=== PATIENT | female | born 1940 | race Caucasian/White ===

== ENCOUNTER → 2016-12-04 | Outpatient (CLI) | payer MEDICARE, OTHER ==
[~2016-12-04] MED LIST: REGADENOSON 0.4 MG/5 ML SYRINGE IV ONE
--- NOTE | 2016-12-04 10:59 | EST ---
DATE OF SERVICE: 12/04/2016 AGE: 76Y SEX: F HT: 5' WT: 185 lbs. Protocol Monster: Other: Lexiscan Cardiolite Stage: Dur. of Exercise: *Heart Rate Blood Pressure *Rest: 77 Rest: 155/85 * *Max. Achieved: 86 Maximum BP: 155/85 85% PMHR: 122 100% PMHR: 144 *METS: INDICATIONS: Chest pain. MEDICATIONS: CLINICAL INFORMATION: Chest pain, palpitations, shortness of breath. Resting ECG shows sinus rhythm, rate of 77 beats per minute, NH interval 0.16, QRS 0.08, nonpathologic Q waves are noted in the inferior leads. Utilizing a standard Lexiscan protocol, Lexiscan was given IV push followed by serial EKGs without any chest pain or pressure or ST segment deviations or cardiac arrhythmias throughout the study. IMPRESSION: 1. Baseline rhythm is sinus with a normal NH interval, normal QRS, normal ST-T waves, nonpathologic Q waves noted in the inferior leads. 2. Negative Lexiscan Cardiolite study. 3. Nuclear scintigrams to follow from radiology department.
--- NOTE | 2016-12-04 13:48 | NM ---
"EXAMINATION TYPE: NM stress lexiscan cardiolite DATE OF EXAM: 12/04/2016 10:49 AM COMPARISON: None HISTORY: Chest pain, diabetes TECHNIQUE: After the intravenous administration of 10.6 mCi Tc 99m Sestamibi - Cardiolite resting SP ECT images acquired 45 minutes post injection. The patient received 0.4mg Lexiscan, 27.5 mCi Tc 99m Sestamibi - Stress images obtained [address] injection FINDINGS: Review of stress and rest SPECT images demonstrates decreased radiopharmaceutical uptake along the an terolateral wall left ventricle on stress images as compared to rest images. Gated analysis shows no rmal wall motion with an estimated left ventricular ejection fraction of 72 %. 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
== END | disposition home or self-care (01) ==
LOC: RADNMMAIN 08:24
PROVIDERS: ATTEND Family Medicine
DX: R07.9 Chest pain, unspecified (principal); E11.21 Type 2 diabetes mellitus with diabetic nephropathy
CPT/HCPCS: 93017; 78452; A9500; J2785

== ENCOUNTER → 2016-12-21 | Outpatient (CLI) | payer MEDICARE, OTHER ==
[2016-12-21 11:56] LABS: Basophils % (A) 0 %; CH 29.5; CHCM 31.7; Eosinophils # (A) 0.1 k/uL (0-0.7); Eosinophils % (A) 1 %; HCT 41.8 % (34.0-46.0); HDW 2.27; Luc # (Auto) 0.19; Luc % (Auto) 2; Lymphocytes # (A) 2.2 k/uL (1.0-4.8); Lymphocytes % (A) 24 %; MCH 29.1 pg (25.0-35.0); MCHC 31.2 g/dL (31.0-37.0); MCV 93.5 fL (80.0-100.0); Mean Platelet Volume 7.6; Monocytes # (A) 0.4 k/uL (0-1.0); Monocytes % (A) 4 %; Neutrophils # (A) 6.2 k/uL (1.3-7.7); Neutrophils % (A) 68 %; RBC 4.47 m/uL (3.80-5.40); RDW 13.2 % (11.5-15.5); WBC 9.1 k/uL (3.8-10.6); WBC (Perox) 9.43
[2016-12-21 12:14] LABS: Anion Gap 8 mmol/L; Blood Urea Nitrogen 13 mg/dL (7-17); Carbon Dioxide 30 mmol/L (22-30); Chloride 103 mmol/L (98-107); Non-African American GFR(MDRD) >60 (>60 ml/min/1.73 sqM); Potassium 4.9 mmol/L (3.5-5.1); Sodium 141 mmol/L (137-145)
== END | disposition home or self-care (01) ==
LOC: LABPAT 10:52
PROVIDERS: ATTEND Internal Medicine Cardiovascular Disease
DX: Z01.818 Encounter for other preprocedural examination (principal); R94.39 Abnormal result of other cardiovascular function study
CPT/HCPCS: 80051; 82565; 84520; 85025

== ENCOUNTER → 2016-12-30 | Day surgery (SDC) | payer MEDICARE, OTHER ==
[2016-12-28 14:12] VITALS: BMI 35.7
[~2016-12-30] MED LIST changes: +ALPRAZolam 0.25 MG TAB PO PRN; +ALPRAZolam 0.5 MG TAB PO PRN; +ASPIRIN 325 MG TAB PO STA; +ATORVASTATIN 80 MG TAB PO STA; +IOHEXOL 350 MG/ML 125ML BOTTLE INJ ONE; +LIDOCAINE 2% INJ 20 MG/ML (20 ML MDV) ONE; +LIDOCAINE 2% INJ 20 MG/ML SQ ONE; +MIDAZOLAM 2 MG/2 ML VIAL IV ONE; +MIDAZOLAM 2 MG/2 ML VIAL ONE; +NITROGLYCERIN SL TABS 0.4 MG TAB SUBLINGUAL PRN; -REGADENOSON 0.4 MG/5 ML SYRINGE IV ONE; +RX INFO: IV CONTRAST WAS GIVEN 1 EACH MISC MISCELLANE PRN; +SODIUM CHLORIDE 0.9% 1,000 ML IV SCH; +SODIUM CHLORIDE 0.9% 1,000 ML in EMPTY BAG 1 BAG IV ONE; +diphenhydrAMINE 50 MG/ML 1 ML VIAL IVP ONE; +diphenhydrAMINE 50 MG/ML 1 ML VIAL ONE; +fentaNYL (PF) 50 MCG/ML 2 ML AMP IV ONE; +fentaNYL (PF) 50 MCG/ML 2 ML AMP ONE
[2016-12-30 10:37] VITALS: TEMP 9.9
[2016-12-30 10:47] LABS: Glucose,Whole Blood 125 mg/dL (75-99)
--- NOTE | 2016-12-30 12:23 | P.PCN ---
Date of Procedure: 12/30/16 Preoperative Diagnosis: Positive stress test and chest pain Postoperative Diagnosis: The same Procedure(s) Performed: Left heart catheterization without left ventriculography Implants: Indications for Procedure: Operative Findings: Description of Procedure: HISTORY: This is a 76-year-old female with history of hypertension and hypercholesterolemia who has been experiencing exertional chest pain and back pain. A stress test was size to of ischemia in the anterolateral wall area. Patient is advised to have a cardiac cath for definitive diagnosis. CONSENT:I have discussed the risks, benefits and alternative therapies for the above-mentioned procedure and for both sedation/analgesia as well as necessary blood product administration, if indicated, as they pertain to this patient. The patient has indicated understanding and acceptance of the risks and procedures discussed. CONSCIOUS SEDATION: Patient was given 1 mg of Versed and 25 fentanyl for conscious sedation. The duration was 15 minutes. PROCEDURE: Patient was brought to the lab in a fasting state. The right groin is infiltrated with lidocaine and right femoral artery was entered using Seldinger technique. A 6-Haitian catheter was left in place and selective coronary arteriography was performed. Patient tolerated the procedure well. Femoral angiogram was performed and Angio-Seal was applied for hemostasis. No immediate complications were noted and patient was transferred to [facility] in a stable condition HEMODYNAMICS: The aortic pressure is about 110/70. Left with end-diastolic pressure is about 10-15. There is a gradient of about 9 mm across the aortic valve. SELECTIVE CORONARY ARTERIOGRAPHY: LEFT MAIN: This is normal length and patent. THE LEFT ANTERIOR DESCENDING CORONARY ARTERY: This is a moderate caliber vessel giving rise to good-sized diagonal branch. The diagonal branch has about 70-80% ostial stenosis. Rest of the LAD is free of any significant focal disease. THE LEFT CIRCUMFLEX AND IS CORONARY ARTERY: This is a moderate caliber vessel giving rise good-sized OM branch and PLV branch. Circumflex coronary artery is free of occlusive disease. THE RIGHT CORONARY ARTERY: This is a good caliber vessel and dominant giving rise good-sized PDA and PLV. It has ectatic changes in the proximal portion and mild plaque without any significant critical lesions LEFT VENTRICULOGRAPHY:. Not performed FINAL IMPRESSION: Diffuse mild plaque with a significant lesion involving the ostium of the diagonal. PLAN: Maximum medical therapy and risk factor modification PROGNOSIS: Fair
[2016-12-30 16:12] VITALS: BP 115/59; PULSE 67; RESP 18
== END | disposition home or self-care (01) ==
LOC: CATHCVL 10:08
PROVIDERS: ATTEND Internal Medicine Cardiovascular Disease
DX: I25.118 Atherosclerotic heart disease of native coronary artery with other forms of angina pectoris (principal); I10 Essential (primary) hypertension; Z82.49 Family history of ischemic heart disease and other diseases of the circulatory system; R01.1 Cardiac murmur, unspecified; E78.2 Mixed hyperlipidemia; E11.9 Type 2 diabetes mellitus without complications; Z79.84 Long term (current) use of oral hypoglycemic drugs; Z79.82 Long term (current) use of aspirin; Z79.899 Other long term (current) drug therapy; Z88.0 Allergy status to penicillin
CPT/HCPCS: 93458; 99152; C1760; C1894; C1769; J2001; J2250; J1200; J3010; Q9967

== ENCOUNTER → 2017-06-28 | Outpatient (CLI) | payer MEDICARE, OTHER ==
--- NOTE | 2017-06-28 17:09 | BD ---
EXAMINATION TYPE: MG DEXA axial skeleton. DATE OF EXAM: 06/28/2017 COMPARISON: NONE CLINICAL HISTORY: 76-year-old female postmenopausal without HRT Height: 60.5 IN Weight: 178 LBS FRAX RISK QUESTIONS: Alcohol (3 or more units per day): NO Family History (Parent hip fracture): YES MOTHER Glucocorticoids (More than 3mos): NO (Ex: prednisone, prednisolone, methylprednisolone, dexamethasone, and hydrocortisone). History of Fracture in Adulthood: YES LEFT WRIST AGE 76 Secondary Osteoporosis: 1. Type 1 Diabetes: NO 2. Hyperthyroidism: NO 3. Menopause before 45: NO 4. Malnutrition: NO 5. Chronic liver disease: NO Rheumatoid Arthritis: NO Current Tobacco Use: NO RISK FACTORS HISTORY OF: History of Wrist Fracture: YES LEFT WRIST When: AGE 76 Active: NO Postmenopausal woman: AGE 51 MEDICATIONS: Additional Medications: HEART ONE A DAY, METOPROLOL TARTRATE, ISOSORBIDE MONONITRATE, LUTHER ASPIRIN, ATORVASTATIN, Additional History: PT HAD BREAST CANCER WITH CHEMO EXAM MEASUREMENTS: Bone mineral densitometry was performed using the [employer]. Bone mineral density as measured about the Lumbar spine is: ----- L1-L4(G/cm2): 1.004 T Score Values are as follows: ----- L2: -2.7 ----- L3: -0.8 ----- L4: -0.8 ----- L1-L4: -1.5 Bone mineral density BASELINE Bone mineral density about the R hip (g/cm2): 0.753 Bone mineral density about the L hip (g/cm2): 0.701 T Score values are as follows: -----R Neck: -2.0 -----L Neck: -2.4 -----R Total: -2.0 -----L Total: -1.5 Bone mineral density BASELINE IMPRESSION: Osteopenia (T Score between -2.5 and -1 as noted by T score values There is slightly increased risk of fracture and the patient may be considered for treatment. Re-Screen 2-5 years. NOTE: T-SCORE=SD OF THE YOUNG ADULT MEAN.
--- NOTE | 2017-06-29 12:02 | MM ---
Reason for exam: additional evaluation requested from prior study. Last mammogram was performed 1 year ago. History: Patient has breast cancer gene. Mastectomy of the left breast, 2006. Took antineoplastic beginning at age 65. Physical Findings: Nurse did not find any significant physical abnormalities on exam. MG 3D Diag Mammo W/Cad RT CC and MLO view(s) were taken of the right breast. Prior study comparison: July 07, 2016, mammogram, performed at [facility]. July 25, 2015, mammogram, performed at [facility]. The breast tissue is heterogeneously dense. This may lower the sensitivity of mammography. Finding: There are typically benign round calcifications in the right breast. Previous mammotome biopsy in the left breast. There is no discrete abnormality. These results were verbally communicated with the patient and result sheet given to the patient on 06/29/17. ASSESSMENT: Benign, BI-RAD 2 RECOMMENDATION: Routine screening mammogram of the right breast in 1 year.
== END | disposition home or self-care (01) ==
LOC: RADMAMWWP 09:55
PROVIDERS: ATTEND Family Medicine
DX: Z08 Encounter for follow-up examination after completed treatment for malignant neoplasm (principal); Z85.3 Personal history of malignant neoplasm of breast; M85.80 Other specified disorders of bone density and structure, unspecified site; Z78.0 Asymptomatic menopausal state
CPT/HCPCS: 77080; G0206; G0279

== ENCOUNTER → 2017-08-19 | Outpatient (CLI) | payer MEDICARE, OTHER ==
--- NOTE | 2017-08-19 18:31 | US ---
EXAMINATION TYPE: US thyroid st tissue head/neck DATE OF EXAM: 08/19/2017 COMPARISON: NONE CLINICAL HISTORY: C50.919 Breast cancer, R68.89 Abnormal findings seen on MRI of c-spine. Scanned right supraclavicular area no abnormalities seen at this time. IMPRESSION: There is no evidence of supraclavicular lymphadenopathy that is suggested by the MR scan report.
== END | disposition home or self-care (01) ==
LOC: RADUSMAIN 17:21
PROVIDERS: ATTEND Internal Medicine Hematology & Oncology
DX: C50.919 Malignant neoplasm of unspecified site of unspecified female breast (principal); R68.89 Other general symptoms and signs
CPT/HCPCS: 76536

== ENCOUNTER → 2017-08-24 | Outpatient (CLI) | payer MEDICARE, OTHER ==
--- NOTE | 2017-08-24 16:04 | XR ---
EXAMINATION TYPE: XR chest 2V DATE OF EXAM: 08/24/2017 COMPARISON: MR cervical spine 07/17/2017 HISTORY: R 90.89 TECHNIQUE: Frontal and lateral views of the chest are obtained. FINDINGS: There is no focal air space opacity, pleural effusion, or pneumothorax seen. The cardiac silhouette size is within normal limits. Patient is rotated. Suspect a scoliotic curvature visualized spine. Degenerative disc changes in the visualized spine. Prominent lung volumes suggest underlying COPD. Flowing anterior osteophytes in thoracic spine may be indicative of diffuse idiopathic skeleta l hyperostosis. Some basilar scarring is stable in the left. The osseous structures are intact. IMPRESSION: No acute cardiopulmonary process.
== END ==
LOC: RADXRMAIN 11:47
PROVIDERS: ATTEND Family Medicine
DX: R90.89 Other abnormal findings on diagnostic imaging of central nervous system (principal)
CPT/HCPCS: 71046

== ENCOUNTER → 2018-06-30 | Outpatient (CLI) | payer MEDICARE, OTHER ==
--- NOTE | 2018-07-01 11:47 | MM ---
Reason for exam: screening (asymptomatic). Last mammogram was performed 1 year ago. History: Patient has breast cancer gene. Mastectomy of the left breast, 2006. Took antineoplastic beginning at age 65. Physical Findings: A clinical breast exam by your physician is recommended on an annual basis and results should be correlated with mammographic findings. MG Screen Johnie Unilateral W/Cad CC, MLO, and XCCL view(s) were taken of the right breast. Prior study comparison: June 28, 2017, right breast MG 3d diag mammo w/cad RT. July 07, 2016, mammogram, performed at [facility]. The breast tissue is heterogeneously dense. This may lower the sensitivity of mammography. There are benign appearing round dystrophic calcifications in the right breast. Previous mammotome biopsy in the right breast. There is no discrete abnormality. ASSESSMENT: Benign, BI-RAD 2 RECOMMENDATION: Routine screening mammogram of the right breast in 1 year.
== END | disposition home or self-care (01) ==
LOC: RADMAMWWP 08:58
PROVIDERS: ATTEND Family Medicine
DX: Z12.31 Encounter for screening mammogram for malignant neoplasm of breast (principal)
CPT/HCPCS: 77067

== ENCOUNTER 2018-11-18 14:55 | Inpatient (IN) | payer MEDICARE, OTHER ==
--- NOTE | 2018-11-18 15:19 | ED ---
Fall HPI - General Chief Complaint: Fall Stated Complaint: Fall-poss hip fracture Time Seen by Provider: 11/18/18 15:00 Source: patient Mode of arrival: EMS - History of Present Illness Initial Comments: This a 78-year-old female presents emergency from via EMS chief complaint fall, right hip pain. Patient reportedly was getting out of her bed states that she rolled and fell off bed onto her right side. Patient states she has severe right hip pain. Patient's prior orthopedic physician was Dr. Marlow. Patient denies any head injury no loss conscious. Patient unable to ambulate. Denies any back pain no chest pain or shortness breath. - Related Data Home Medications Medication Instructions Recorded Confirmed Atorvastatin [Lipitor] 40 mg PO DAILY 11/11/15 12/30/16 Carbidopa-Levodopa 25-100 mg 1 each PO TID 11/11/15 12/30/16 [Sinemet 25-100 mg] Glimepiride [Amaryl] 1 mg PO [id number] 11/11/15 12/30/16 Linagliptin [Tradjenta] 5 mg PO DAILY 11/11/15 12/30/16 Aspirin [Adult Low Dose Aspirin EC] 81 mg PO DAILY 12/28/16 12/30/16 Isosorbide Mononitrate [Isosorbide 30 mg PO DAILY 12/28/16 12/30/16 Mononitrate ER] Metoprolol Tartrate 25 mg PO QAM 12/28/16 12/30/16 Previous Rx's Medication Instructions Recorded Nitroglycerin Sl Tabs [Nitrostat] 0.4 mg SUBLINGUAL Q5M PRN #30 tab 12/30/16 Allergies Allergy/AdvReac Type Severity Reaction Status Date / Time Penicillins AdvReac Diarrhea Verified 12/28/16 13:57 Review of Systems ROS Statement: Those systems with pertinent positive or pertinent negative responses have been documented in the HPI. ROS Other: All systems not noted in ROS Statement are negative. Past Medical History Past Medical History: Cancer, Diabetes Mellitus, Eye Disorder, Hypertension, Neurologic Disorder, Osteoarthritis (OA) Additional Past Medical History / Comment(s): Parkinson's disease, hx. breast cancer 2005-had chemo, mitral valve prolapse, SOB w/exertion History of Any Multi-Drug Resistant Organisms: None Reported Past Surgical History: Breast Surgery, Cholecystectomy Additional Past Surgical History / Comment(s): mastectomy left breast, right cataract Past Anesthesia/Blood Transfusion Reactions: No Reported Reaction Past Psychological History: Depression Smoking Status: Never smoker - Past Family History Mother Family Medical History: Unable to Obtain General Exam Limitations: no limitations General appearance: alert, in no apparent distress Head exam: Present: atraumatic, normocephalic, normal inspection Respiratory exam: Present: normal lung sounds bilaterally. Absent: respiratory distress, wheezes, rales, rhonchi, stridor Cardiovascular Exam: Present: regular rate, normal rhythm, normal heart sounds. Absent: systolic murmur, diastolic murmur, rubs, gallop, clicks Extremities exam: Present: other (Shortening rotation noted of the right leg, tenderness with palpation at the right hip) Back exam: Present: full ROM. Absent: tenderness Neurological exam: Present: alert, oriented X3, CN II-XII intact Course Vital Signs 11/18/18 15:01 Temperature 98.0 F Pulse Rate 92 Respiratory 16 Rate Blood Pressure 173/78 O2 Sat by Pulse 97 Oximetry - Reevaluation(s) Reevaluation #1: 11/18/18 15:44 Patient was given pain meds by EMS did not require any further pain meds on initial evaluation Medical Decision Making - Medical Decision Making 70-year-old female presented for a fall. Patient has a right hip fracture. Patient will be admitted for ortho and internal medicine. - EKG Data EKG Comments: EKG performed at 13:24 no sinus rhythm with a rate of 90 RI 156 QRS 82 QT/QTC 380/464 Disposition Clinical Impression: Fall, Closed right hip fracture Disposition: ADMITTED IP TO THIS HOSP Condition: Fair Referrals: Malathi Coppola MD [Primary Care Provider] - 1-2 days
[2018-11-18 15:45] LABS: Appearance,Urine Clear (Clear); Bilirubin,Urine Negative (Negative); Blood,Urine Small (Negative); Color,Urine Yellow; Glucose,Urine (UA) 1+ (Negative); Hyaline Casts,Urine 4 /lpf (0-2); Ketones,Urine Negative (Negative); Leukocyte Esterase,Urine Negative (Negative); Mucus,Urine Rare /hpf; Nitrite,Urine Negative (Negative); PH, Urine 6.5 (5.0-8.0); Protein,Urine Trace (Negative); RBC,Urine 5 /hpf (0-5); Specific Gravity,Urine 1.013 (1.001-1.035); Squamous Epithelial Cell,Urine 3 /hpf (0-4); Urobilinogen,Urine <2.0 mg/dL (<2.0)
[2018-11-18] MEDS ORDERED: HYDROmorphone 0.5 MG/0.5 ML SYRINGE IVP PRN (15:49)
[2018-11-18] MEDS ORDERED: HYDROcodone/APAP 5-325MG 1 EACH TAB PO PRN (15:49)
[2018-11-18] MEDS ORDERED: HYDROmorphone 1 MG/ML 1 ML SYRINGE IVP PRN (15:49)
[2018-11-18] MEDS ORDERED: NALOXONE 0.4 MG/ML 1 ML VIAL IV PRN (15:49)
--- NOTE | 2018-11-18 15:51 | XR ---
EXAMINATION TYPE: XR chest 1V DATE OF EXAM: 11/18/2018 COMPARISON: 08/24/2017 HISTORY: Pain post fall TECHNIQUE: Single frontal view of the chest is obtained. FINDINGS: Upper mediastinum is widened consider CT scan. There is limited inspiration with subsegmen siri changes involving the left lung base. No sizable pneumothorax. Elevated hemidiaphragm. Degenerati ve change of the spine. Arthropathy of the shoulders. IMPRESSION: Left basilar atelectasis favored over infiltrate. Mediastinum appears widened which coul d partially be related to reduced inspiration/ AP portable technique but CT scan is suggested.
--- NOTE | 2018-11-18 15:52 | XR ---
EXAMINATION TYPE: XR Hip RT and AP Pelvis DATE OF EXAM: 11/18/2018 COMPARISON: NONE HISTORY: Pain TECHNIQUE: A single AP view of the pelvis is obtained. Two views of the right hip are obtained. FINDINGS: There is comminuted displaced fracture involving the right femoral neck. Bilateral hip art hropathy noted. Vascular calcifications in the pelvis. SI joints symmetric. Degenerative change lower lumbar spine. IMPRESSION: 1. Displaced comminuted fracture right femoral neck.
[2018-11-18 16:52] LABS: Basophils % (A) 0 %; Eosinophils # (A) 0.2 k/uL (0-0.7); Eosinophils % (A) 1 %; HGB 11.7 gm/dL (11.4-16.0); Lymphocytes # (A) 1.2 k/uL (1.0-4.8); Lymphocytes % (A) 6 %; MCH 28.8 pg (25.0-35.0); MCHC 32.5 g/dL (31.0-37.0); MCV 88.6 fL (80.0-100.0); Mean Platelet Volume 9.2; Monocytes # (A) 0.6 k/uL (0-1.0); Monocytes % (A) 3 %; Neutrophils # (A) 18.4 k/uL (1.3-7.7); Neutrophils % (A) 90 %; Platelet Count 230 k/uL (150-450); RBC 4.06 m/uL (3.80-5.40); RDW 14.3 % (11.5-15.5); WBC 20.5 k/uL (3.8-10.6)
[2018-11-18 16:59] LABS: ALT 16 U/L (9-52); AST 20 U/L (14-36); Albumin 3.2 g/dL (3.5-5.0); Alkaline Phosphatase 147 U/L (38-126); Anion Gap 7 mmol/L; Blood Urea Nitrogen 19 mg/dL (7-17); Calcium 8.6 mg/dL (8.4-10.2); Carbon Dioxide 25 mmol/L (22-30); Chloride 106 mmol/L (98-107); Glucose 220 mg/dL (74-99); Potassium 3.9 mmol/L (3.5-5.1); Sodium 138 mmol/L (137-145); Total Bilirubin 0.4 mg/dL (0.2-1.3); Total Protein 5.8 g/dL (6.3-8.2)
[2018-11-18 17:00] LABS: Partial Thromboplastin Time 24.4 sec (22.0-30.0); Prothrombin Time 10.3 sec (9.0-12.0)
[2018-11-18] MEDS: ONDANSETRON 4 MG/2 ML VIAL IVP PRN (17:44)
[2018-11-18 17:45] VITALS: BMI 38.7
[2018-11-18 17:53] LABS: Glucose,Whole Blood 197 mg/dL (75-99)
[2018-11-18] MEDS ORDERED: ONDANSETRON 4 MG/2 ML VIAL IVP STA (18:56)
[2018-11-18] MEDS ORDERED: IPRATROPIUM-ALBUTEROL 3 ML NEB INHALATION PRN (19:07)
[2018-11-18] MEDS: SODIUM CHLORIDE 0.9% 1,000 ML IV SCH (19:54)
[2018-11-18 20:25] LABS: Glucose,Whole Blood 218 mg/dL (75-99)
[2018-11-18] MEDS ORDERED: HEPARIN SODIUM,PORCINE 5,000 UNIT/ML 1 ML VIAL SQ ONE (21:00)
[2018-11-18] MEDS: IPRATROPIUM-ALBUTEROL 3 ML NEB INHALATION SCH (21:15)
--- NOTE | 2018-11-18 21:49 | CONS ---
CONSULTATION DATE OF SERVICE: 11/18/2018. REASON FOR CONSULTATION: Advice regarding diabetes and other medical issues, requested by Dr. Dave. HISTORY OF PRESENT ILLNESS: This 78-year-old woman with past medical history of diabetes, history of hypertension, DJD, history of Parkinson disease, history of cholecystectomy, being followed by Dr. Malathi Coppola in the outpatient setting, apparently rolled out of the bed today and the patient fell down. The patient is complaining of right hip pain. The patient was taken to [facility] and admitted for further evaluation and treatment. A displaced comminuted fracture of the right femoral neck was noted. While with EMS the patient received morphine, subsequently patient also had Dilaudid in the ER because of pain. Currently the patient is vomiting incessantly. Patient has elevated white count. The patient also has suspected pneumonia on the chest x-ray also. There is no history of fevers or rigors. No history of headache, loss of consciousness, seizures. ____ has been ordered. PAST MEDICAL HISTORY: History of diabetes, history hypertension, history of DJD, history of Parkinson's, history of breast cancer with chemo, mitral valve collapse. MEDICATIONS: 1. Metoprolol 25 mg a.m. 2. Tradjenta 5 mg daily. 3. Imdur ER 30 mg. 4. Amaryl 1 mg with breakfast. 5. Sinemet 100 one p.o. t.i.d. 6. Lipitor 40 mg daily. 7. Ecotrin 81 mg. 8. Tylenol with codeine 1 tablet every 6 hours p.r.n. ALLERGIES: PENICILLIN. FAMILY HISTORY: No history of heart disease or strokes in the family. SOCIAL HISTORY: No smoking. Occasional alcohol. REVIEW OF SYSTEMS: ENT: Diminished hearing. No diminished vision. CARDIOVASCULAR: No angina or palpitations. GI: As mentioned earlier. : No dysuria or hematuria. NERVOUS SYSTEM: No numbness or weakness. ALLERGY/IMMUNOLOGY/ASTHMA: As mentioned earlier. HEMATOLOGY/ONCOLOGY: As mentioned. ENDOCRINE: Diabetes. CONSTITUTIONAL: As mentioned. DERMATOLOGY: Negative. HEMATOLOGY: Negative. PSYCHOLOGY: As mentioned. PHYSICAL EXAMINATION: Alert oriented x2. Pulse 92, blood pressure 173/78, respirations 16, temperature 98 degrees, pulse ox 97% on room air. HEENT: Conjunctivae normal. Oral mucosa moist. NECK: No jugular venous distention. No lymph node enlargement CARDIOVASCULAR: S1 and S2 muffled. LUNGS: Breath sounds diminished at the bases. Few scattered rhonchi. No crackles. ABDOMEN: Soft, nontender. No mass. EXTREMITIES: Movements are painful. Right leg as mentioned. NERVOUS SYSTEM: Higher functions as mentioned earlier. No focal deficit. LYMPHATICS: No lymph nodes palpable in the neck, axillae or groin. SKIN: No rashes. JOINTS: No active deformity or arthropathies. LAB STUDIES: WBC 20.2, hemoglobin 7.7, sodium 130, potassium 3.9 glucose 220 and albumin 3.2. Chest x-ray reviewed personally by me. ASSESSMENT: 1. Status post fall and right hip fracture. 2. Increased WBC. 3. Vomiting, possibly narcotic induced. 4. Possible left basilar atelectasis or infiltrate with bilateral changes, possibly chronic changes, possible pneumonia. 5. Diabetes mellitus type 2. 6. Vomiting, possibly medication induced. 7. Rule out influenza. 8. Hypertension. 9. History of DJD, history of Parkinson's, history of breast cancer with chemo. 10.History of cholecystectomy. 11.History of depression. 12.FULL CODE. RECOMMENDATIONS: This 78-year-old woman who presented with multiple complicated medical issues, we will monitor the patient closely, continue the current management and symptomatic treatment. Will initiate broad-spectrum IV antibiotics and bronchodilators. Also recommend pulmonary consultation prior to surgery. Otherwise I would also recommend cautious IV fluids and keep the patient n.p.o. until the patient's vomiting has subsided. Will continue with proton pump inhibitors. See orders for further details. Otherwise, I would also recommend possible influenza. Resume the home medications. Overall prognosis guarded because of multiple complex medical issues. Further recommendations to follow. MMODL / IJN: [id number] /
[2018-11-18] MEDS: PANTOPRAZOLE 40 MG/10 ML VIAL IVP SCH (22:44)
[2018-11-18] MEDS: FAMOTIDINE 20 MG TAB PO SCH (22:44)
[2018-11-18] MEDS: INSULIN ASPART (NovoLOG) 100 UNIT/ML VIAL SQ SCH (22:44)
[2018-11-18] MEDS: CARBIDOPA-LEVODOPA 25-100 MG 1 EACH TAB PO SCH (22:44)
--- NOTE | 2018-11-19 07:19 | XR ---
EXAMINATION TYPE: XR chest 1V portable DATE OF EXAM: 11/19/2018 HISTORY: pneumonia. REFERENCE: Previous study dated 11/18/2018. FINDINGS: There is chronic apparent elevation right hemidiaphragm. Heart size upper limits of normal. Lungs appear clear. Pleural spaces are clear. IMPRESSION: BORDERLINE CARDIOMEGALY.
[2018-11-19 07:31] LABS: Glucose,Whole Blood 114 mg/dL (75-99)
[2018-11-19] MEDS: ONDANSETRON 4 MG/2 ML VIAL IVP PRN (07:47)
[2018-11-19] MEDS: MORPHINE SULFATE 2 MG/ML SYRINGE IVP PRN ×3 (07:47→21:26)
[2018-11-19 07:56] LABS: Basophils % (A) 0 %; Eosinophils # (A) 0.2 k/uL (0-0.7); Eosinophils % (A) 2 %; HCT 32.6 % (34.0-46.0); HGB 10.5 gm/dL (11.4-16.0); Lymphocytes # (A) 1.7 k/uL (1.0-4.8); Lymphocytes % (A) 18 %; MCH 28.5 pg (25.0-35.0); MCHC 32.2 g/dL (31.0-37.0); MCV 88.4 fL (80.0-100.0); Mean Platelet Volume 9.3; Monocytes # (A) 0.4 k/uL (0-1.0); Monocytes % (A) 5 %; Neutrophils % (A) 74 %; Platelet Count 198 k/uL (150-450); RBC 3.68 m/uL (3.80-5.40); WBC 9.5 k/uL (3.8-10.6)
[2018-11-19 08:11] LABS: Anion Gap 3 mmol/L; Blood Urea Nitrogen 17 mg/dL (7-17); Calcium 8.4 mg/dL (8.4-10.2); Carbon Dioxide 28 mmol/L (22-30); Chloride 105 mmol/L (98-107); Creatine Kinase 413 U/L (30-135); Glucose 117 mg/dL (74-99); Potassium 4.5 mmol/L (3.5-5.1); Sodium 136 mmol/L (137-145)
[2018-11-19] MEDS: IPRATROPIUM-ALBUTEROL 3 ML NEB INHALATION SCH ×2 (09:18→13:15)
--- NOTE | 2018-11-19 09:25 | P.HPOR ---
History of Present Illness H&P Date: 11/19/18 This is a 70-year-old female who is admitted for right hip fracture. Patient states that on 11/18/2018 she rolled out of bed and fell onto the right hip. Patient states that she was unable to get up after this and had to drag herself to her door and yell for her neighbor to help. Patient denies any loss of consciousness or head injury. Patient states that she was taken to the emergency room via EMS and x-rays showed evidence for intertrochanteric fracture of the right hip. Patient denies any fever/chills, numbness, weakness, tingling, abdominal pain, shortness of breath or chest pain. Review of Systems See HPI. Past Medical History Past Medical History: Cancer, Diabetes Mellitus, Eye Disorder, Hypertension, Neurologic Disorder, Osteoarthritis (OA) Additional Past Medical History / Comment(s): Parkinson's disease, hx. breast cancer 2005-had chemo, mitral valve prolapse, SOB w/exertion History of Any Multi-Drug Resistant Organisms: None Reported Past Surgical History: Breast Surgery, Cholecystectomy Additional Past Surgical History / Comment(s): mastectomy left breast, right cataract Past Anesthesia/Blood Transfusion Reactions: No Reported Reaction Past Psychological History: Depression Additional Psychological History / Comment(s): Live alone in apartment Smoking Status: Never smoker Past Alcohol Use History: Rare Past Drug Use History: None Reported - Past Family History Mother Family Medical History: Unable to Obtain Medications and Allergies Home Medications Medication Instructions Recorded Confirmed Type Atorvastatin [Lipitor] 40 mg PO DAILY 11/11/15 11/18/18 History Carbidopa-Levodopa 25-100 mg 1 tab PO TID 11/11/15 11/18/18 History [Sinemet 25-100 mg] Glimepiride [Amaryl] 1 mg PO AC-BRKFST 11/11/15 11/18/18 History Linagliptin [Tradjenta] 5 mg PO DAILY 11/11/15 11/18/18 History Aspirin [Adult Low Dose Aspirin EC] 81 mg PO DAILY 12/28/16 11/18/18 History Isosorbide Mononitrate [Isosorbide 30 mg PO DAILY 12/28/16 11/18/18 History Mononitrate ER] Metoprolol Tartrate 25 mg PO QAM 12/28/16 11/18/18 History Acetaminophen-Codeine 300-30mg 1 tab PO Q6H PRN 11/18/18 11/18/18 History [Tylenol w/codeine #3] Allergies Allergy/AdvReac Type Severity Reaction Status Date / Time Penicillins AdvReac Diarrhea Verified 11/18/18 15:52 Physical Examination On exam patient is resting comfortably in bed in no acute distress. Patient is alert and oriented 3. There is tenderness to palpation over the right hip. Right lower extremity is shortened. Skin is intact. There is mild swelling. Patient has full foot and ankle motion bilaterally. There is no pain with log roll of the left lower extremity. Patient has full range of motion of the head and neck. Head is normocephalic and atraumatic. Patient has full range of motion of bilateral upper extremities. There is no tenderness to palpation over bilateral shoulders, elbows, wrists or hands. Radial pulses are 2+ bilaterally. Dorsalis pedis pulses are 2+ bilaterally. Bilateral upper and lower extremities are warm and well perfused. Sensation intact. Neurovascular status circulatory status are intact. Results X-rays of the right hip and pelvis show an intertrochanteric fracture of the right femur. - Labs Labs: Abnormal Lab Results - Last 24 Hours (Table) 11/18/18 11/18/18 11/18/18 Range/Units 15:20 16:40 16:40 WBC 20.5 H (3.8-10.6) k/uL RBC (3.80-5.40) m/uL Hgb (11.4-16.0) gm/dL Hct (34.0-46.0) % Neutrophils # 18.4 H (1.3-7.7) k/uL Sodium (137-145) mmol/L BUN 19 H (7-17) mg/dL Glucose 220 H (74-99) mg/dL POC Glucose (mg/dL) (75-99) mg/dL Alkaline Phosphatase 147 H (38-126) U/L Creatine Kinase (30-135) U/L Troponin I (0.000-0.034) ng/mL Total Protein 5.8 L (6.3-8.2) g/dL Albumin 3.2 L (3.5-5.0) g/dL Urine Protein Trace H (Negative) Urine Glucose (UA) 1+ H (Negative) Urine Blood Small H (Negative) Hyaline Casts 4 H (0-2) /lpf Urine Mucus Rare H (None) /hpf 11/18/18 11/18/18 11/18/18 Range/Units 17:42 19:20 20:14 WBC (3.8-10.6) k/uL RBC (3.80-5.40) m/uL Hgb (11.4-16.0) gm/dL Hct (34.0-46.0) % Neutrophils # (1.3-7.7) k/uL Sodium (137-145) mmol/L BUN (7-17) mg/dL Glucose (74-99) mg/dL POC Glucose (mg/dL) 197 H 218 H (75-99) mg/dL Alkaline Phosphatase (38-126) U/L Creatine Kinase (30-135) U/L Troponin I 0.108 H* (0.000-0.034) ng/mL Total Protein (6.3-8.2) g/dL Albumin (3.5-5.0) g/dL Urine Protein (Negative) Urine Glucose (UA) (Negative) Urine Blood (Negative) Hyaline Casts (0-2) /lpf Urine Mucus (None) /hpf 11/19/18 11/19/18 11/19/18 Range/Units 01:56 07:09 07:37 WBC (3.8-10.6) k/uL RBC 3.68 L (3.80-5.40) m/uL Hgb 10.5 L (11.4-16.0) gm/dL Hct 32.6 L (34.0-46.0) % Neutrophils # (1.3-7.7) k/uL Sodium (137-145) mmol/L BUN (7-17) mg/dL Glucose (74-99) mg/dL POC Glucose (mg/dL) 114 H (75-99) mg/dL Alkaline Phosphatase (38-126) U/L Creatine Kinase (30-135) U/L Troponin I 0.098 H* (0.000-0.034) ng/mL Total Protein (6.3-8.2) g/dL Albumin (3.5-5.0) g/dL Urine Protein (Negative) Urine Glucose (UA) (Negative) Urine Blood (Negative) Hyaline Casts (0-2) /lpf Urine Mucus (None) /hpf 11/19/18 11/19/18 Range/Units 07:37 07:37 WBC (3.8-10.6) k/uL RBC (3.80-5.40) m/uL Hgb (11.4-16.0) gm/dL Hct (34.0-46.0) % Neutrophils # (1.3-7.7) k/uL Sodium 136 L (137-145) mmol/L BUN (7-17) mg/dL Glucose 117 H (74-99) mg/dL POC Glucose (mg/dL) (75-99) mg/dL Alkaline Phosphatase (38-126) U/L Creatine Kinase 413 H (30-135) U/L Troponin I 0.078 H* (0.000-0.034) ng/mL Total Protein (6.3-8.2) g/dL Albumin (3.5-5.0) g/dL Urine Protein (Negative) Urine Glucose (UA) (Negative) Urine Blood (Negative) Hyaline Casts (0-2) /lpf Urine Mucus (None) /hpf H & H 11/18/18 11/19/18 Range/Units 16:40 07:37 Hgb 11.7 10.5 L (11.4-16.0) gm/dL Hct 36.0 32.6 L (34.0-46.0) % Coagulation 11/18/18 Range/Units 16:40 INR 1.0 (<1.2) Result Diagrams: 11/19/18 07:37 11/19/18 07:37 Assessment and Plan Assessment: Diabetes mellitus Hypertension Osteoarthritis Parkinson's disease History of breast cancer (1) Closed right hip fracture Current Visit: Yes Status: Acute Code(s): S72.001A - FRACTURE OF UNSP PART OF NECK OF RIGHT FEMUR, INIT SNOMED Code(s): 477139698 (2) Fall Current Visit: Yes Status: Acute Code(s): W19.XXXA - UNSPECIFIED FALL, INITIAL ENCOUNTER SNOMED Code(s): 6056742 Plan: 1. Patient is to be NPO after midnight. 2. Continue pain control. 3. Nonweightbearing to the right lower extremity. 4. Appreciate input from medicine. 5. SCDs bilateral lower extremities. 6. Closed reduction and intramedullary hip screw fixation of the right hip is planned for 11/20/2018 pending medical clearance and consent.
[2018-11-19] MEDS: ATORVASTATIN 40 MG TAB PO SCH (09:47)
[2018-11-19] MEDS: ASPIRIN 81 MG PO SCH (09:47)
[2018-11-19] MEDS: CARBIDOPA-LEVODOPA 25-100 MG 1 EACH TAB PO SCH ×3 (09:48→21:36)
[2018-11-19] MEDS: ISOSORBIDE MONONITRATE ER 30 MG TAB.ER.24H PO SCH (09:48)
[2018-11-19] MEDS: METOPROLOL TARTRATE 25 MG TAB PO SCH (09:48)
[2018-11-19] MEDS: FAMOTIDINE 20 MG TAB PO SCH ×2 (09:48→21:36)
[2018-11-19] MEDS: LINAGLIPTIN 5 MG TABLET PO SCH (09:48)
[2018-11-19] MEDS: INSULIN ASPART (NovoLOG) 100 UNIT/ML VIAL SQ SCH ×4 (09:50→21:36)
[2018-11-19] MEDS: SODIUM CHLORIDE 0.9% 1,000 ML IV SCH ×2 (09:50→21:37)
[2018-11-19] MEDS: PANTOPRAZOLE 40 MG/10 ML VIAL IVP SCH ×2 (09:50→21:36)
--- NOTE | 2018-11-19 10:55 | P.CRDCN ---
History of Present Illness Consult date: 11/19/18 Reason for Consult (text): Elevated troponins History of present illness: Patient is a 78-year-old female who follows with Dr. Kirkland in the office, who was admitted to the hospital after recent fall with right hip fracture. She states she was rolling over as when she fell out of her bed onto the floor. She denies any dizziness or lightheadedness, or loss of consciousness prior to her fall. She denies any chest discomfort, palpitations, or dyspnea. He is using her only complaint is hip pain. Her troponins are mildly elevated at 0.1 and 0.0 7. His EKG shows sinus rhythm without acute ST or T-wave changes. She is currently resting comfortably in bed in no acute distress. On exam lungs are clear. Systolic murmur audible. PAST MEDICAL HISTORY: Hypertension, mitral valve prolapse REVIEW OF SYSTEMS: No fever or chills. No cough or expectoration. No diaphoresis. Patient denies headache, dizziness, blurred vision, double vision. Patient denies any stomach discomfort. No nausea, vomiting. No hematochezia. No hematemesis. Denies any black stools or blood in his stools. Denies dysuria or hematuria. No muscle weakness or numbness. PHYSICAL EXAMINATION: This is a 70-year-old female in no apparent distress at the time of my examination. HEENT: Head is atraumatic, normocephalic. Pupils are equal, round. Sclerae anicteric. Conjunctivae are clear. Mucous membranes of the mouth are moist. Neck is supple. There is no jugular venous distention. No carotid bruit is heard. CHEST EXAMINATION: Lungs are clear to auscultation. No chest wall tenderness is noted on palpation or with deep breathing. HEART EXAMINATION: Heart regular rate and rhythm. S1, S2 heard. Systolic murmur. No gallops or rub. ABDOMEN: Soft, nontender. Bowel sounds are heard. No organomegaly noted. EXTREMITIES: 2+ peripheral pulses with no evidence of peripheral edema and no calf tenderness noted. NEUROLOGIC EXAMINATION: Patient is awake, alert and oriented x3. LABORATORY DATA: Troponin 0.1 & 0.07, WBC 9.5, hemoglobin 10.5, sodium 136, potassium 4.5 creatinine 0.61, CK 413 Past Medical History Past Medical History: Cancer, Diabetes Mellitus, Eye Disorder, Hypertension, Neurologic Disorder, Osteoarthritis (OA) Additional Past Medical History / Comment(s): Parkinson's disease, hx. breast cancer 2006-had chemo, mitral valve prolapse, SOB w/exertion History of Any Multi-Drug Resistant Organisms: None Reported Past Surgical History: Breast Surgery, Cholecystectomy Additional Past Surgical History / Comment(s): mastectomy left breast, right cataract Past Anesthesia/Blood Transfusion Reactions: No Reported Reaction Past Psychological History: Depression Additional Psychological History / Comment(s): Live alone in apartment Smoking Status: Never smoker Past Alcohol Use History: Rare Past Drug Use History: None Reported - Past Family History Mother Family Medical History: Unable to Obtain Medications and Allergies Home Medications Medication Instructions Recorded Confirmed Type Atorvastatin [Lipitor] 40 mg PO DAILY 11/11/15 11/18/18 History Carbidopa-Levodopa 25-100 mg 1 tab PO TID 11/11/15 11/18/18 History [Sinemet 25-100 mg] Glimepiride [Amaryl] 1 mg PO AC-BRKFST 11/11/15 11/18/18 History Linagliptin [Tradjenta] 5 mg PO DAILY 11/11/15 11/18/18 History Aspirin [Adult Low Dose Aspirin EC] 81 mg PO DAILY 12/28/16 11/18/18 History Isosorbide Mononitrate [Isosorbide 30 mg PO DAILY 12/28/16 11/18/18 History Mononitrate ER] Metoprolol Tartrate 25 mg PO QAM 12/28/16 11/18/18 History Acetaminophen-Codeine 300-30mg 1 tab PO Q6H PRN 11/18/18 11/18/18 History [Tylenol w/codeine #3] Allergies Allergy/AdvReac Type Severity Reaction Status Date / Time Penicillins AdvReac Diarrhea Verified 11/18/18 15:52 Physical Exam Vitals: Vital Signs Temp Pulse Pulse Resp BP BP Pulse Ox 11/19/18 09:29 76 11/19/18 09:19 74 11/19/18 08:05 98.3 F 76 14 112/67 90 L 11/19/18 07:49 72 11/19/18 01:40 97.8 F 72 16 107/61 93 L 11/19/18 00:25 81 17 11/18/18 21:30 76 11/18/18 21:15 75 04/05/19 21:00 97.8 F 81 17 115/63 94 L 11/18/18 16:51 98.5 F 84 18 131/51 97 11/18/18 15:01 98.0 F 92 16 173/78 97 Intake and Output 11/18/18 11/19/18 11/19/18 22:59 06:59 14:59 Intake Total 790 Output Total 600 450 275 Balance -600 -450 515 Intake: Intake, IV Titration 550 Amount Sodium Chloride 0.9% 1, 450 000 ml @ 75 mls/hr IV . [id number] [facility] Rx#:[id number] cefTRIAXone 1 gm In 100 Sodium Chloride 0.9% 50 ml @ 100 mls/hr IVPB Q24HR [facility] Rx#:[id number] Oral 240 Output: Urine 600 450 275 Other: Voiding Method Indwelling Catheter Weight 80 kg Results 11/19/18 07:37 11/19/18 07:37 Cardiac Enzymes 11/18/18 11/18/18 11/19/18 Range/Units 16:40 19:20 01:56 AST 20 (14-36) U/L Troponin I 0.108 H* 0.098 H* (0.000-0.034) ng/mL 11/19/18 Range/Units 07:37 AST (14-36) U/L Troponin I 0.078 H* (0.000-0.034) ng/mL Coagulation 11/18/18 Range/Units 16:40 PT 10.3 (9.0-12.0) sec APTT 24.4 (22.0-30.0) sec CBC 11/18/18 11/19/18 Range/Units 16:40 07:37 WBC 20.5 H 9.5 (3.8-10.6) k/uL RBC 4.06 3.68 L (3.80-5.40) m/uL Hgb 11.7 10.5 L (11.4-16.0) gm/dL Hct 36.0 32.6 L (34.0-46.0) % Plt Count 230 198 (150-450) k/uL Comprehensive Metabolic Panel 11/18/18 11/19/18 Range/Units 16:40 07:37 Sodium 138 136 L (137-145) mmol/L Potassium 3.9 4.5 (3.5-5.1) mmol/L Chloride 106 105 (98-107) mmol/L Carbon Dioxide 25 28 (22-30) mmol/L BUN 19 H 17 (7-17) mg/dL Creatinine 0.68 0.61 (0.52-1.04) mg/dL Glucose 220 H 117 H (74-99) mg/dL Calcium 8.6 8.4 (8.4-10.2) mg/dL AST 20 (14-36) U/L ALT 16 (9-52) U/L Alkaline Phosphatase 147 H (38-126) U/L Total Protein 5.8 L (6.3-8.2) g/dL Albumin 3.2 L (3.5-5.0) g/dL Current Medications Generic Name Dose Route Start Last Admin Trade Name Freq PRN Reason Stop Dose Admin Hydrocodone Bitart/Acetaminophen 1 each 11/18/18 15:49 11/18/18 19:54 [place] 5-325 PO 1 each Q4HR PRN Administration Moderate Pain Albuterol/Ipratropium 3 ml 11/18/18 20:00 11/19/18 09:18 Duoneb 0.5 Mg-3 Mg/3 Ml Soln INHALATION 3 ml RT-TID LASHANDA Administration Albuterol/Ipratropium 3 ml 11/18/18 19:07 Duoneb 0.5 Mg-3 Mg/3 Ml Soln INHALATION RT-TID PRN Shortness Of Breath Or Wheezing Aspirin 81 mg 11/19/18 09:00 11/19/18 09:47 Aspirin PO 81 mg DAILY LASHANDA Administration Atorvastatin Calcium 40 mg 11/19/18 09:00 11/19/18 09:47 Lipitor PO 40 mg DAILY LASHANDA Administration Carbidopa/Levodopa 1 each 11/18/18 22:00 11/19/18 09:48 Sinemet 25-100 PO 1 each TID LASHANDA Administration Famotidine 20 mg 11/18/18 21:00 11/19/18 09:48 Pepcid PO 20 mg BID LASHADNA Administration Hydromorphone HCl 0.5 mg 11/18/18 15:49 11/18/18 16:49 Dilaudid IVP 0.5 mg Q3HR PRN Administration Moderate Pain Hydromorphone HCl 1 mg 11/18/18 15:49 Dilaudid IVP Q3HR PRN Severe Pain Sodium Chloride 1,000 mls @ 75 mls/hr 11/18/18 18:30 11/19/18 09:50 Saline 0.9% IV 75 mls/hr .[id number] LASHANDA Administration Ceftriaxone Sodium 1 gm/ 50 mls @ 100 mls/hr 11/18/18 19:15 11/19/18 09:47 Sodium Chloride IVPB 100 mls/hr Q24HR LASHANDA Administration Insulin Aspart 0 unit 11/18/18 21:00 11/19/18 09:50 Novolog SQ Not Given ACHS [facility] Protocol Isosorbide Mononitrate 30 mg 11/19/18 09:00 11/19/18 09:48 Imdur PO 30 mg DAILY LASHANDA Administration Linagliptin 5 mg 11/19/18 09:00 11/19/18 09:48 Tradjenta PO 5 mg DAILY LASHANDA Administration Metoprolol Tartrate 25 mg 11/19/18 09:00 11/19/18 09:48 Lopressor PO 25 mg QAM LASHANDA Administration Morphine Sulfate 2 mg 11/19/18 03:55 11/19/18 07:47 Morphine Sulfate (Inj) IVP 2 mg Q4HR PRN Administration Pain Naloxone HCl 0.2 mg 11/18/18 15:49 Narcan IV Q2M PRN Opioid Reversal Ondansetron HCl 4 mg 11/18/18 15:49 11/19/18 07:47 Zofran IVP 4 mg Q8HR PRN Administration Nausea And Vomiting Pantoprazole Sodium 40 mg 11/18/18 21:00 11/19/18 09:50 Protonix IVP 40 mg BID LASHANDA Administration Intake and Output 11/18/18 11/19/18 11/19/18 22:59 06:59 14:59 Intake Total 790 Output Total 600 450 275 Balance -600 -450 515 Intake: Intake, IV Titration 550 Amount Sodium Chloride 0.9% 1, 450 000 ml @ 75 mls/hr IV . [id number] [facility] Rx#:[id number] cefTRIAXone 1 gm In 100 Sodium Chloride 0.9% 50 ml @ 100 mls/hr IVPB Q24HR [facility] Rx#:[id number] Oral 240 Output: Urine 600 450 275 Other: Voiding Method Indwelling Catheter Weight 80 kg 11/19/18 07:37 11/19/18 07:37 EKG Interpretations (text) Sinus rhythm without acute ST or T-wave changes Assessment and Plan Plan: FINAL ASSESSMENT AND PLAN: 1. S/P Fall with hip fracture. 2. Elevated troponin with elevated CK. 3. Hypertension. 4. Mitral valve prolapse. PLAN: We will continue current regimen. Elevated cardiac enzymes indicate skeletal muscle injury. Patient is cleared to proceed with orthopedic surgery as clinically indicated.
[2018-11-19 12:20] LABS: Glucose,Whole Blood 214 mg/dL (75-99)
--- NOTE | 2018-11-19 14:11 | CONS ---
CONSULTATION PULMONARY CRITICAL CARE CONSULTATION PREOP CLEARANCE: DATE OF SERVICE: 11/19/2018 This is a 78-year-old female who apparently presented to the emergency room via EMS after having fallen. She apparently complained of right hip pain and was found to have a comminuted fracture of the right hip. It was of the right femoral neck. She apparently fell while getting out of bed. She apparently was going to have surgery, but they wanted both cardiac and pulmonary clearance for her. She really did not have any pulmonary issues. She does have a chronic cough probably related more to sinus disease than anything else. She did not produce any phlegm. She really denies any COPD, emphysema, chronic bronchitis, pneumonia, etc. She denies any shortness of breath, chest tightness, wheezing, cough or phlegm production. Her cough is mostly dry and likely related to sinus drip. Anyway, the patient is apparently scheduled to have hip repair tomorrow. Dr. Dave is the primary. She apparently already been cleared by Cardiology. HOME MEDICATION: Her home medications include Lipitor, Sinemet, Amaryl, Tradjenta, aspirin, Imdur, metoprolol and nitroglycerin sublingual. ALLERGIES: Are PENICILLIN. MEDICAL HISTORY: Diabetes mellitus, hypertension, osteoarthritis, Parkinson's disease, breast cancer, mitral valve prolapse. SURGICAL HISTORY: Includes right cataract surgery, left breast mastectomy, and cholecystectomy. SOCIAL HISTORY: Significant that she is a lifelong nonsmoker. Does not drink alcohol or use illicit drugs. FAMILY HISTORY: Not obtainable. REVIEW OF SYSTEMS: CONSTITUTIONAL: Negative. NEUROLOGIC: Negative. HEENT: Sinus drainage/postnasal drip. CARDIOVASCULAR: Negative. PULMONARY: Dry cough, and fluid related to sinus drainage. GI: Negative. : Negative. RHEUMATOLOGIC: Right hip pain from fall. IMMUNOLOGIC: Negative. ENDOCRINOLOGIC: Negative. DERMATOLOGIC: Negative. Current vital signs are reviewed. Her temperature is 98.3, heart rate 72, respiratory rate 14, blood pressure 112/67, mean arterial pressure is 82, 2 L saturations 96%. Appears in no acute distress. HEENT examination is grossly unremarkable. Mucous membranes are moist. No oral lesions. Neck is supple. Full range of motion. No adenopathy or thyromegaly. Neck veins are flat. Cardiovascular examination reveals regular rhythm and rate. S1, S2 normal. No distinct murmur noted. Lungs reveal clear breath sounds. No wheezes, rhonchi, or crackles. Abdomen is soft. Bowel sounds are heard. Extremities are intact. No cyanosis, clubbing, or edema. She apparently does have pain over the right hip area. Skin without rash. Neurologic examination is brief but nonfocal. LABS: Reviewed. White count 9.5, hemoglobin 10.5, hematocrit 32.6, platelet count 198,000. Sodium 136, potassium 4.5, chloride 105, CO2 is 28, anion gap 3. BUN and creatinine were 17 and 0.61. Troponins are 0.098 and 0.078. CK was 413. Influenza A and B studies were negative. The patient had a chest x-ray on admission, which showed some atelectasis at the left lung base. It was not a particularly good inspiratory effort. The subsequent x-ray done today shows evidence of just some borderline cardiomegaly. Pleural spaces are clear. There are no infiltrates. Orthopedic evaluation and Cardiology evaluation of both reviewed. Medications are reviewed. She is not on anything for breathing nor does she need anything at this time. The updrafts will be discontinued. ASSESSMENT: 1. Status post right hip fracture with anticipated repair tomorrow November 20, 2018. 2. No evidence of any intrinsic pulmonary disease at this time. 3. History of hyperlipidemia. 4. History of Parkinson disease. 5. History of diabetes. 6. History of hypertension. 7. History of mitral valve prolapse. 8. History of breast cancer with previous left mastectomy. PLAN: The patient's antibiotics and breathing treatments can be discontinued. Will recommend deep breathing, cough and clearing of secretions and use incentive spirometer both before and after surgery. There is no pulmonary contraindication to surgery. I do not believe she has pneumonia. I believe what we are seeing is by primarily atelectasis at the left lung base. She is a lifelong nonsmoker. Will continue to follow as needed. MMODL / IJN: [id number] /
[2018-11-19] MEDS ORDERED: DIAZEPAM 5 MG/ML 2 ML INJ IVP PRN (14:37)
[2018-11-19] MEDS: DIAZEPAM 5 MG/ML (10 ML MDV) IVP PRN ×2 (15:02→21:48)
[2018-11-19 17:21] LABS: Glucose,Whole Blood 140 mg/dL (75-99)
[2018-11-19 19:47] LABS: Glucose,Whole Blood 166 mg/dL (75-99)
[2018-11-20] MEDS: DIAZEPAM 5 MG/ML (10 ML MDV) IVP PRN (05:35)
[2018-11-20 07:42] LABS: Glucose,Whole Blood 158 mg/dL (75-99)
[2018-11-20] MEDS: INSULIN ASPART (NovoLOG) 100 UNIT/ML VIAL SQ SCH ×4 (07:46→21:50)
--- NOTE | 2018-11-20 08:06 | PN ---
PROGRESS NOTE DATE OF SERVICE: 11/19/2018 This 78-year-old woman was admitted with right hip fracture is being closely monitored at this time. The patient had vomiting and possible acute gastritis, possible narcotic induced and the patient has some atelectasis. The patient has improved significantly. No chest pain. No palpitations. Cardiology and pulmonary are following the patient closely. PAST MEDICAL HISTORY: Reviewed. REVIEW OF SYMPTOMS: CARDIOVASCULAR: No angina or palpitations. RESPIRATION: As mentioned earlier. GI: No nausea or vomiting. 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 CURRENT MEDICATIONS: 1. [place] 5 mg q.4h p.r.n. 2. Aspirin 81 mg. 3. Lipitor 40 mg daily. 4. Sinemet. 5. Valium. 6. Pepcid. 7. Dilaudid. 8. NovoLog. 9. Imdur. 11.Lopressor. 12.Zofran. 13.Protonix. PHYSICAL EXAM: Patient is alert, oriented x3. Pulse is 72. Blood pressure 130/77, respiration 16, temperature 98.2, pulse ox 97% on 2 L. HEENT: Conjunctivae normal. Neck is no jugular venous distention. CARDIOVASCULAR: S1, S2 muffled. RESPIRATORY: Breath sounds diminished in the bases. A few scattered rhonchi and crackles. ABDOMEN: Soft, nontender. Legs are no edema. No swelling. CENTRAL NERVOUS SYSTEM: No focal deficits. LABS: WBC 9.2, hemoglobin 10.5, glucose 117 and troponin 0.078. Influenza is negative. ASSESSMENT: 1. Status post fall and right hip fracture. 2. Increased WBC. 3. Vomiting possible narcotic induced, possible acute gastritis. 4. Possible basilar atelectasis and tracheobronchitis. No evidence of pneumonia per Pulmonary. 5. Diabetes mellitus type 2. 6. Vomiting possible medication induced. 7. Hypertension. 8. Indeterminate troponin at 0.078. 9. History of degenerative joint disease. 10.History of Parkinson's. 11.History of breast cancer with chemo. 12.History of cholecystectomy. 13.History of depression. 14.FULL CODE. RECOMMENDATIONS AND DISCUSSION: Recommend to continue current medications. Continue to monitor. Symptomatic treatment. Otherwise, at this time, I recommend to continue the bronchodilators. Continue with empiric antibiotics. Otherwise, continue the rest of the medications. Ensure oxygenation. Guarded prognosis because of multiple complex medical issues. Further recommendations to follow. The patient is cleared for surgery and continue to monitor. MMODL / IJN: [id number] / EMA
[2018-11-20] MEDS: FAMOTIDINE 20 MG TAB PO SCH ×2 (09:00→21:50)
[2018-11-20] MEDS: METOPROLOL TARTRATE 25 MG TAB PO SCH (09:00)
[2018-11-20] MEDS: ISOSORBIDE MONONITRATE ER 30 MG TAB.ER.24H PO SCH (09:00)
[2018-11-20 09:11] LABS: Basophils % (A) 0 %; Eosinophils # (A) 0.1 k/uL (0-0.7); Eosinophils % (A) 1 %; HCT 30.8 % (34.0-46.0); HGB 10.1 gm/dL (11.4-16.0); Lymphocytes # (A) 1.5 k/uL (1.0-4.8); Lymphocytes % (A) 14 %; MCH 28.8 pg (25.0-35.0); MCHC 32.6 g/dL (31.0-37.0); MCV 88.2 fL (80.0-100.0); Mean Platelet Volume 10.7; Monocytes # (A) 0.5 k/uL (0-1.0); Monocytes % (A) 5 %; Neutrophils # (A) 8.8 k/uL (1.3-7.7); Neutrophils % (A) 80 %; Platelet Count 153 k/uL (150-450); RDW 15.4 % (11.5-15.5)
[2018-11-20] MEDS ORDERED: ceFAZolin IN SWFI 2 GM/20 ML SYRINGE IVP ONE (09:14)
[2018-11-20] MEDS ORDERED: HYDROmorphone 0.5 MG/0.5 ML SYRINGE IVP PRN ×3 (09:19)
[2018-11-20] MEDS ORDERED: MAGNESIUM HYDROXIDE 2,400 MG/10 ML CUP PO PRN (09:19)
[2018-11-20] MEDS ORDERED: ONDANSETRON 4 MG/2 ML VIAL IVP PRN (09:19)
[2018-11-20] MEDS ORDERED: NALOXONE 0.4 MG/ML 1 ML VIAL IV PRN (09:19)
[2018-11-20] MEDS ORDERED: HYDROcodone/APAP 5-325MG 1 EACH TAB PO PRN ×2 (09:19→09:26)
[2018-11-20] MEDS ORDERED: DIAZEPAM 5 MG TAB PO PRN (09:19)
[2018-11-20] MEDS ORDERED: IV FLUID CONTINUATION 1,000 ML IV ONE (09:39)
[2018-11-20] MEDS ORDERED: MIDAZOLAM 2 MG/2 ML VIAL ONE (09:40)
[2018-11-20] MEDS ORDERED: PHENYLEPHRINE-0.9% NACL SYG 1 MG/10 ML SYRINGE ONE (09:40)
[2018-11-20] MEDS ORDERED: ePHEDrine SULFATE/0.9% NACL/PF 50 MG/5 ML SYRINGE IV ONE (09:40)
[2018-11-20] MEDS ORDERED: fentaNYL (PF) 50 MCG/ML 2 ML AMP ONE (09:40)
[2018-11-20] MEDS ORDERED: PROPOFOL 10 MG/ML 20 ML VIAL IV ONE (09:40)
[2018-11-20] MEDS ORDERED: KETAMINE 10 MG/ML 20 ML VIAL ONE (09:40)
--- NOTE | 2018-11-20 11:59 | FL ---
FLUOROSCOPY 2 minutes and 48 seconds of fluoroscopy time were utilized during dynamic hip pinning of the right hi p. 2 images document the procedure.
--- NOTE | 2018-11-20 11:59 | P.OP ---
Date of Procedure: 11/20/18 Preoperative Diagnosis: Intertrochanteric fracture right hip Postoperative Diagnosis: Intertrochanteric fracture right hip Procedure(s) Performed: Close reduction and intramedullary hip screw placement of the right hip Implants: [employer] intertan nail 130, 11.5 mm x 18 cm. [employer] Intertan integrated interlocking lag screw, 90 mm lag screw, 85 mm compression screw. [employer] L-P screw, 5.0 mm x 32.5 mm. Anesthesia: spinal Surgeon: Surendra Dave Electronic Health Records Specialist #1: Caitlyn Carreon Estimated Blood Loss (ml): 500 Pathology: none sent Condition: stable Disposition: PACU Indications for Procedure: This is a 78-year-old female that fell onto her right hip. X-rays demonstrated displaced intertrochanteric fracture of her right hip. After discussing the surgical nonsurgical treatment options with her at length, I recommended a close reduction and intramedullary hip screw placement of the right hip. Informed consent was obtained. Operative Findings: Operative findings are consistent with a displaced intertrochanteric fracture of the right hip Description of Procedure: The patient was seen in the preoperative area, consent was reviewed, and the operative site was marked with a skin marker. The patient was brought to the operating room and placed on the operating room table. Anesthesia was adminis tered by the anesthesia department. 2 g of Ancef were administered intravenously. The patient was placed supine on the fracture table with the fractured extremity in traction boot. The other extremity was placed in a well leg choudhary and his bony prominences were padded. A universal timeout was then performed which confirmed the patient's name, surgical site, ALLERGIES, and consent. Fracture reduction was performed with traction and adduction maneuver which was confirmed with fluoroscopy. After reduction was performed, the extremity was then prepped and draped in the usual sterile fashion. Utilizing fluoroscopy to identify the tip of the greater trochanter, a 3 cm incision was made just proximal to the greater trochanter. Utilizing a curved awl, the starting hole was created at the tip of the greater trochanter and centralized in the AP plane. These locations were confirmed by fluoroscopy. Guidewire was then inserted down the medullary canal. Sequentially reaming of the femur was performed to 13 mm distally and 17 mm proximally. After reaming, appropriate size nail was inserted over the guidewire. The nail was inserted to the appropriate depth and the guidewire was removed. The lag screw targeting device was placed in the jig and a small skin incision was made and the targeting guide was placed down to bone. Utilizing the distally threaded guidewire, the guidewire was placed in the appropriate position in the femoral head, both anterior, posterior and mediolateral. Next, the drill for the second screw was then placed through the guide and drilled to the appropriate depth. The guidewire was measured and the appropriate depth was then reamed. The final size screw was placed to the appropriate depth. Traction was released and the fracture site was compressed with the aid of the second screw. The proximal drill guide was then removed and the distal drill guide was then inserted in the jig. Skin incision was made down to bone and the distal drill guide was then pl aced. Distal hole was then drilled and measured to the appropriate depth. Distal screw was then placed. The entire jig was then removed and final fluoroscopic x- rays were obtained. The wounds were then irrigated copiously with saline solution. Fascia was closed with 0-Vicryl. Subcutaneous tissues were closed with 2-0 Vicryl and the skin was closed with quincy. Sterile dressings were applied. The patient was transported to the recovery room in stable condition. The grants and contracts assistant VINAY Deleon was required due the complexity of surgery the need for skilled surgical consultant for positioning draping retraction and fracture reduction.
[2018-11-20] MEDS ORDERED: HYDROmorphone 1 MG/ML 1 ML SYRINGE IVP ONE (12:09)
[2018-11-20 12:43] LABS: HCT 25.3 % (34.0-46.0); HGB 8.4 gm/dL (11.4-16.0); MCH 30.3 pg (25.0-35.0); MCHC 33.3 g/dL (31.0-37.0); MCV 90.7 fL (80.0-100.0); Mean Platelet Volume 7.8; Platelet Count 165 k/uL (150-450); RBC 2.79 m/uL (3.80-5.40); WBC 14.3 k/uL (3.8-10.6)
--- NOTE | 2018-11-20 12:46 | XR ---
EXAMINATION TYPE: XR Hip Limited RT , ONE VIEW DATE OF EXAM ORDERED: 11/20/2018 HISTORY: Status post hip surgery, assess surgical alignment. COMPARISON: Intraoperative films. FINDINGS: There has been intramedullary andrey fixation and Light pinning of the right hip. There con tinues to be some displacement of the patient's intertrochanteric fracture. Metallic skin sutures are present. IMPRESSION: STATUS POST RIGHT HIP PINNING.
[2018-11-20] MEDS ORDERED: ONDANSETRON 4 MG/2 ML VIAL IVP ONE (12:53)
[2018-11-20] MEDS ORDERED: SODIUM CHLORIDE 0.9% 1,000 ML IV ONE (12:57)
[2018-11-20] MEDS: MORPHINE SULFATE 2 MG/ML SYRINGE IVP PRN (13:18)
[2018-11-20] MEDS: SODIUM CHLORIDE 0.9% 1,000 ML IV SCH ×2 (13:27)
[2018-11-20] MEDS: CARBIDOPA-LEVODOPA 25-100 MG 1 EACH TAB PO SCH ×3 (13:27→21:48)
[2018-11-20] MEDS: PANTOPRAZOLE 40 MG/10 ML VIAL IVP SCH ×2 (13:29→21:49)
[2018-11-20 16:07] LABS: Glucose,Whole Blood 197 mg/dL (75-99)
[2018-11-20] MEDS ORDERED: LORazepam 2 MG/ML INJ IV PRN (16:10)
[2018-11-20 17:28] LABS: Glucose,Whole Blood 206 mg/dL (75-99)
[2018-11-20] MEDS: ATORVASTATIN 40 MG TAB PO SCH (17:55)
[2018-11-20] MEDS: LINAGLIPTIN 5 MG TABLET PO SCH (17:55)
[2018-11-20] MEDS: ceFAZolin IN SWFI 2 GM/20 ML SYRINGE IVP SCH ×2 (17:55→23:45)
[2018-11-20] MEDS: ASPIRIN 81 MG PO SCH (17:55)
--- NOTE | 2018-11-20 19:29 | PN ---
PROGRESS NOTE DATE OF SERVICE: 11/20/2018 This 78-year-old woman who was admitted after a fall and right hip fracture, underwent closed reduction and an intramedullary hip screw placement of the right hip by Dr. Dave today. Possibly the patient is drowsy. No chest pain. No palpitation. EXAM: Pulse is 72. Blood pressure 120/76, respiration 16, temperature 97.2, pulse ox 98% on 2 L. HEENT: Conjunctivae normal. Oral mucosa is moist. Neck is no jugular venous distention. No carotid bruit. No lymph node enlargement. CARDIOVASCULAR: S1, S2. RESPIRATORY: Breath sounds diminished in the bases. No rhonchi, no crackles. ABDOMEN: Soft. LEGS: Status post surgery. NERVOUS SYSTEM: No focal deficits. LABS: WBC 14.2, hemoglobin is 8.4, glucose noted. BNP normal. ASSESSMENT: 1. Status post fall and right hip fracture. 2. Increased WBC. 3. Vomiting possibly narcotic induced, possible acute gastritis, improved. 4. Possible bibasilar atelectasis with tracheobronchitis. No evidence of pneumonia per Pulmonary. 5. Diabetes mellitus type 2. 6. Vomiting possibly medication induced. 7. Hypertension. 8. Indeterminate troponin 0.078. 9. History of degenerative joint disease. 10.Parkinson's. 11.History of breast cancer with chemo. 12.History of cholecystectomy. 13.History of depression. 14.FULL CODE. RECOMMENDATIONS AND DISCUSSION: I recommend to continue current medical management, continue with monitoring and symptomatic treatment. Closely follow with Orthopedic Surgery. See orders for details. Incentive spirometry and DVT prophylaxis. Further recommendations to follow. MMODL / IJN: [id number] /
[2018-11-20 19:57] LABS: Glucose,Whole Blood 212 mg/dL (75-99)
[2018-11-20] MEDS: SENNOSIDES-DOCUSATE SODIUM 1 EACH TAB PO SCH (21:50)
[2018-11-21] MEDS: SODIUM CHLORIDE 0.9% 1,000 ML IV SCH ×4 (00:08→18:29)
[2018-11-21 07:26] LABS: Glucose,Whole Blood 163 mg/dL (75-99)
[2018-11-21 07:46] LABS: Basophils % (A) 0 %; Eosinophils # (A) 0.1 k/uL (0-0.7); Eosinophils % (A) 1 %; HCT 20.8 % (34.0-46.0); Lymphocytes % (A) 9 %; MCH 29.2 pg (25.0-35.0); MCHC 32.1 g/dL (31.0-37.0); Mean Platelet Volume 7.7; Monocytes # (A) 0.7 k/uL (0-1.0); Monocytes % (A) 6 %; Neutrophils # (A) 9.5 k/uL (1.3-7.7); Neutrophils % (A) 83 %; Platelet Count 153 k/uL (150-450); RBC 2.28 m/uL (3.80-5.40); RDW 13.5 % (11.5-15.5); WBC 11.4 k/uL (3.8-10.6)
[2018-11-21 08:08] LABS: Anion Gap 4 mmol/L; Blood Urea Nitrogen 18 mg/dL (7-17); Calcium 7.5 mg/dL (8.4-10.2); Carbon Dioxide 25 mmol/L (22-30); Chloride 106 mmol/L (98-107); Glucose 161 mg/dL (74-99); Potassium 4.3 mmol/L (3.5-5.1); Sodium 135 mmol/L (137-145)
[2018-11-21 08:15] LABS: HGB 6.7 gm/dL (11.4-16.0)
--- NOTE | 2018-11-21 08:56 | P.PN ---
Subjective Progress Note Date: 11/21/18 This is a 78-year-old female who is status post closed reduction an intramedullary hip screw fixation of the right hip. There is postoperative day #1. Patient is seen and evaluated at bedside. Patient does complain of muscle spasms of bilateral lower extremities. Patient states that she has not worked with physical therapy yet. Patient denies any fever/chills, numbness, weakness, tingling, abdominal pain, shortness of breath or chest pain. Objective - Vital Signs Vital signs: Vital Signs Temp 98.2 F 11/21/18 07:14 Pulse 52 L 11/21/18 07:14 Resp 14 11/21/18 07:14 BP 103/65 11/21/18 07:14 Pulse Ox 88 L 11/21/18 07:14 Intake & Output 11/20/18 11/21/18 11/21/18 18:59 06:59 18:59 Intake Total 2500 Output Total 900 500 Balance 1600 -500 Intake: IV 1900 Intake, IV Titration 600 Amount Sodium Chloride 0.9% 1, 600 000 ml @ 75 mls/hr IV . [id number] [facility] Rx#:[id number] Output: Urine 400 500 Estimated Blood Loss 500 Other: Voiding Method Indwelling Catheter Indwelling Catheter - Exam Vital signs are stable. Patient is in no acute distress and is alert and oriented 3. Calf is soft and nontender to palpation. Dressing is clean, dry, and intact. Patient has full foot and ankle motion without pain or difficulty. Neurovascular status and circulatory status are intact. - Labs CBC & Chem 7: 11/21/18 07:02 11/21/18 07:02 Labs: Abnormal Lab Results - Last 24 Hours (Table) 11/20/18 11/20/18 11/20/18 Range/Units 07:02 12:20 15:53 WBC 11.0 H 14.3 H (3.8-10.6) k/uL RBC 3.50 L 2.79 L (3.80-5.40) m/uL Hgb 10.1 L 8.4 L D (11.4-16.0) gm/dL Hct 30.8 L 25.3 L (34.0-46.0) % Neutrophils # 8.8 H (1.3-7.7) k/uL Sodium (137-145) mmol/L BUN (7-17) mg/dL Glucose (74-99) mg/dL POC Glucose (mg/dL) 197 H (75-99) mg/dL Calcium (8.4-10.2) mg/dL 11/20/18 11/20/18 11/21/18 Range/Units 17:16 19:45 07:02 WBC 11.4 H (3.8-10.6) k/uL RBC 2.28 L (3.80-5.40) m/uL Hgb 6.7 L* D (11.4-16.0) gm/dL Hct 20.8 L (34.0-46.0) % Neutrophils # 9.5 H (1.3-7.7) k/uL Sodium (137-145) mmol/L BUN (7-17) mg/dL Glucose (74-99) mg/dL POC Glucose (mg/dL) 206 H 212 H (75-99) mg/dL Calcium (8.4-10.2) mg/dL 11/21/18 11/21/18 Range/Units 07:02 07:11 WBC (3.8-10.6) k/uL RBC (3.80-5.40) m/uL Hgb (11.4-16.0) gm/dL Hct (34.0-46.0) % Neutrophils # (1.3-7.7) k/uL Sodium 135 L (137-145) mmol/L BUN 18 H (7-17) mg/dL Glucose 161 H (74-99) mg/dL POC Glucose (mg/dL) 163 H (75-99) mg/dL Calcium 7.5 L (8.4-10.2) mg/dL Microbiology - Last 24 Hours (Table) 11/18/18 19:20 Blood Culture - Preliminary Blood No Growth after 48 hours 11/19/18 07:37 Urine Culture - Final Urine,Catheterized Assessment and Plan Assessment: Diabetes mellitus Hypertension Osteoarthritis Parkinson's disease History of breast cancer (1) Closed right hip fracture Current Visit: Yes Status: Acute Code(s): S72.001A - FRACTURE OF UNSP PART OF NECK OF RIGHT FEMUR, INIT SNOMED Code(s): 501649669 (2) Fall Current Visit: Yes Status: Acute Code(s): W19.XXXA - UNSPECIFIED FALL, INITIAL ENCOUNTER SNOMED Code(s): 3156268 Plan: Continue routine postop care and pain control. Continue anticoagulation with Xarelto. Nonweightbearing to the right lower extremity. Daily dressing changes. Appreciate input from medicine. Likely discharge to rehab in the next 1-2 days.
[2018-11-21] MEDS: CARBIDOPA-LEVODOPA 25-100 MG 1 EACH TAB PO SCH ×3 (10:08→21:48)
[2018-11-21] MEDS: RIVAROXABAN 10 MG TAB PO SCH (10:08)
[2018-11-21] MEDS: FAMOTIDINE 20 MG TAB PO SCH (10:08)
[2018-11-21] MEDS: ATORVASTATIN 40 MG TAB PO SCH (10:08)
[2018-11-21] MEDS: ISOSORBIDE MONONITRATE ER 30 MG TAB.ER.24H PO SCH (10:08)
[2018-11-21] MEDS: LINAGLIPTIN 5 MG TABLET PO SCH (10:08)
[2018-11-21] MEDS: METOPROLOL TARTRATE 25 MG TAB PO SCH ×2 (10:09→14:21)
[2018-11-21] MEDS: INSULIN ASPART (NovoLOG) 100 UNIT/ML VIAL SQ SCH ×4 (10:09→20:23)
[2018-11-21] MEDS: PANTOPRAZOLE 40 MG/10 ML VIAL IVP SCH (10:09)
[2018-11-21] MEDS: ASPIRIN 81 MG PO SCH (10:10)
[2018-11-21 12:42] LABS: Glucose,Whole Blood 184 mg/dL (75-99)
[2018-11-21 17:38] LABS: Glucose,Whole Blood 143 mg/dL (75-99)
--- NOTE | 2018-11-21 17:49 | PN ---
PROGRESS NOTE DATE OF SERVICE: 11/21/2018 This 78-year-old woman who was admitted with fall and right hip fracture also had anemia. The patient had transfusion today. The patient being closely monitored. The patient is slightly confused probably an effect of the anesthesia and also medications also. WBC 11.4. The UA with micro done on admission was showing no acute abnormality. A chest x-ray was done 2 days ago which showed only borderline cardiomegaly. PAST MEDICAL HISTORY: Reviewed. REVIEW OF SYSTEMS: CARDIOVASCULAR: No angina or palpitations. Respiration: As mentioned earlier. GI: As mentioned earlier. : No dysuria. CENTRAL NERVOUS SYSTEM: No numbness, weakness. CURRENT MEDICATIONS: Reviewed and include: 1. Amawalk 5 mg q.p.m. 2. Aspirin 81 mg. 3. Lipitor 40 mg. 5. Valium 5 mg q.6h. 6. Dilaudid p.r.n. 7. NovoLog a.c. and q.h.s. 8. Imdur 30 mg daily. 9. Tradjenta 5 mg p.o. 10.Ativan. 11.Milk of magnesia. 12.Lopressor 25 mg q.h.s. 13.Narcan. 14.Zofran. 15.Protonix 40 mg p.o. b.i.d. 16.Xarelto 10 mg. 17.Senokot-S 2 tabs p.o. q.h.s. PHYSICAL EXAM: Patient is alert, oriented x3. Pulse is 90, blood pressure 95/56, respirations 16, temperature 98.4, pulse ox 98% on room air. HEENT: Conjunctivae normal. NECK: No jugular venous distention. CARDIOVASCULAR: S1, S2 muffled. RESPIRATORY: Breath sounds diminished in the bases. A few scattered rhonchi and crackles. Expiratory wheezing also. ABDOMEN: Soft, nontender. LEGS are no edema. No swelling. CENTRAL NERVOUS SYSTEM: No focal deficits. LABS: WBC 11.2, hemoglobin 6.7, sodium 135. ASSESSMENT: 1. Status post fall and right hip fracture. 2. Anemia. Acute blood loss anemia, status post transfusion. 3. Change in mental status, metabolic encephalopathy, multifactorial, may be possibly medication induced. 4. Increased WBC. 5. Vomiting possibly narcotic induced, possibly acute gastritis, improved. 6. Possible bibasilar atelectasis and tracheobronchitis. No evidence of pneumonia per Pulmonary. 7. Diabetes mellitus type 2. 8. Vomiting possibly medication induced. 9. Hypertension. 10.Indeterminate troponin 0.078. 11.History of degenerative joint disease. 12.History of Parkinson's. 13.History of breast cancer with chemo. 14.History of cholecystectomy. 15.History of depression. 16.FULL CODE. RECOMMENDATIONS AND DISCUSSION: Recommend to continue current medications, continue with monitoring, symptomatic treatment. Otherwise, at this time, repeat labs. One unit transfusion. We will continue to monitor. PT/OT evaluation. Closely followed with Orthopedic surgery and multiple consultants. Otherwise, prognosis guarded because of multiple complex medical issues as listed above. Further recommendation to follow. MMODL / IJN: [id number] / MTDHarini
[2018-11-21] MEDS ORDERED: SODIUM CHLORIDE 0.9% 1,000 ML IV ONE (19:46)
[2018-11-21] MEDS ORDERED: FUROSEMIDE 10 MG/ML 2 ML VIAL IV STA (19:47)
[2018-11-21 20:25] LABS: Glucose,Whole Blood 144 mg/dL (75-99)
[2018-11-21] MEDS: SENNOSIDES-DOCUSATE SODIUM 1 EACH TAB PO SCH (20:25)
[2018-11-21] MEDS: PANTOPRAZOLE 40 MG TABLET PO SCH (20:25)
[2018-11-22] MEDS: SODIUM CHLORIDE 0.9% 1,000 ML IV SCH ×3 (02:44→16:44)
[2018-11-22 07:30] LABS: Glucose,Whole Blood 158 mg/dL (75-99)
[2018-11-22] MEDS: PANTOPRAZOLE 40 MG TABLET PO SCH ×2 (08:49→21:58)
[2018-11-22] MEDS: LINAGLIPTIN 5 MG TABLET PO SCH (08:49)
[2018-11-22] MEDS: ATORVASTATIN 40 MG TAB PO SCH (08:49)
[2018-11-22] MEDS: ASPIRIN 81 MG PO SCH (08:49)
[2018-11-22] MEDS: RIVAROXABAN 10 MG TAB PO SCH (08:49)
[2018-11-22] MEDS: INSULIN ASPART (NovoLOG) 100 UNIT/ML VIAL SQ SCH ×4 (08:49→21:58)
[2018-11-22] MEDS: CARBIDOPA-LEVODOPA 25-100 MG 1 EACH TAB PO SCH ×3 (08:50→21:57)
[2018-11-22] MEDS: METOPROLOL TARTRATE 25 MG TAB PO SCH (08:50)
[2018-11-22] MEDS: ISOSORBIDE MONONITRATE ER 30 MG TAB.ER.24H PO SCH (10:45)
[2018-11-22 11:12] LABS: Basophils % (A) 0 %; Eosinophils # (A) 0.4 k/uL (0-0.7); Eosinophils % (A) 3 %; Hypochromasia Slight; Lymphocytes # (A) 1.4 k/uL (1.0-4.8); Lymphocytes % (A) 12 %; MCHC 34.1 g/dL (31.0-37.0); MCV 90.9 fL (80.0-100.0); Mean Platelet Volume 8.3; Monocytes # (A) 0.4 k/uL (0-1.0); Monocytes % (A) 4 %; Neutrophils # (A) 9.4 k/uL (1.3-7.7); Neutrophils % (A) 81 %; Platelet Count 159 k/uL (150-450); RBC 2.04 m/uL (3.80-5.40); RDW 14.4 % (11.5-15.5); WBC 11.7 k/uL (3.8-10.6)
[2018-11-22 11:17] LABS: HCT 18.6 % (34.0-46.0); HGB 6.3 gm/dL (11.4-16.0)
[2018-11-22 11:48] LABS: Glucose,Whole Blood 189 mg/dL (75-99)
--- NOTE | 2018-11-22 12:04 | P.DS ---
Providers Date of admission: 11/18/18 16:16 Expected date of discharge: 11/22/18 Attending physician: Surendra Dave Consults: 11/18/18 15:49 Consult Physician Stat Consulting Provider: Susanna Correa Consult Reason/Comments: Surgical clearance Do you want consulting provider notified?: Yes 11/18/18 18:58 Consult Physician Routine Consulting Provider: Rolf Kirk Consult Reason/Comments: pre op clearance possible pneumonia tentative surgery Do you want consulting provider notified?: Yes 11/18/18 20:44 Consult Physician Routine Consulting Provider: [facility] Consult Reason/Comments: elevated troponin level Do you want consulting provider notified?: Yes, Notify in am Primary care physician: Malathi Coppola - Discharge Diagnosis(es) (1) Closed right hip fracture Current Visit: Yes Status: Acute (2) Fall Current Visit: Yes Status: Acute Hospital Course: This is a 78-year-old female who sustained an intratrochanteric fracture of the right hip after a fall at home. The patient was evaluated in the emergency room and admitted for further management. After discussion and consideration patient elects to proceed with closed reduction and intramedullary screw fixation of the right hip. The patient is seen preoperatively by Dr. Dave and medically cleared for surgery by internal medicine, cardiology and pulmonology. Patient is admitted to [facility] on 11/18/2018 and closed reduction and intramedullary screw fixation of the right hip is performed on 11/20/2018. The procedures performed without complication or sequelae. The patient is doing well postoperatively. Labs and vital signs are stable on day of discharge. The patient did receive 1 unit of blood due to postoperative anemia secondary to blood loss. On day of discharge patient's hip incision is healing well. There is minimal erythema. There is no drainage noted at this time. There is minimal soft tissue swelling to the hip and thigh. Patient has full foot and ankle motion without difficulty or pain. Calf is soft and nontender to palpation. Neurovascular status to the right lower extremity is intact. Patient is discharged to rehab in good condition. Opioid start talking form is reviewed and signed at patient bedside. Please see med rec for accurate list of home medications. Patient Condition at Discharge: Fair Plan - Discharge Summary Discharge Rx Participant: No New Discharge Prescriptions: New HYDROcodone/APAP 5-325MG [Peyton 5-325] 1 - 2 tab PO Q6HR PRN #56 tab PRN Reason: Pain Sennosides [Senokot] 1 tab PO BID #60 tablet Acetaminophen Tab [Tylenol Tab] 1 - 2 tab PO Q8H PRN #90 tablet PRN Reason: Pain Rivaroxaban [Xarelto] 10 mg PO DAILY #33 tab No Action Linagliptin [Tradjenta] 5 mg PO DAILY Glimepiride [Amaryl] 1 mg PO -[facility] Carbidopa-Levodopa 25-100 mg [Sinemet 25-100 mg] 1 tab PO TID Atorvastatin [Lipitor] 40 mg PO DAILY Metoprolol Tartrate 25 mg PO QAM Isosorbide Mononitrate [Isosorbide Mononitrate ER] 30 mg PO DAILY Aspirin [Adult Low Dose Aspirin EC] 81 mg PO DAILY Acetaminophen-Codeine 300-30mg [Tylenol w/codeine #3] 1 tab PO Q6H PRN PRN Reason: Pain Discharge Medication List Atorvastatin [Lipitor] 40 mg PO DAILY 11/11/15 [History] Carbidopa-Levodopa 25-100 mg [Sinemet 25-100 mg] 1 tab PO TID 11/11/15 [History] Glimepiride [Amaryl] 1 mg PO AC-BRKFST 11/11/15 [History] Linagliptin [Tradjenta] 5 mg PO DAILY 11/11/15 [History] Aspirin [Adult Low Dose Aspirin EC] 81 mg PO DAILY 12/28/16 [History] Isosorbide Mononitrate [Isosorbide Mononitrate ER] 30 mg PO DAILY 12/28/16 [History] Metoprolol Tartrate 25 mg PO QAM 12/28/16 [History] Acetaminophen-Codeine 300-30mg [Tylenol w/codeine #3] 1 tab PO Q6H PRN 11/18/18 [History] Acetaminophen Tab [Tylenol Tab] 1 - 2 tab PO Q8H PRN #90 tablet 11/22/18 [Rx] HYDROcodone/APAP 5-325MG [Peyton 5-325] 1 - 2 tab PO Q6HR PRN #56 tab 11/22/18 [Rx] Rivaroxaban [Xarelto] 10 mg PO DAILY #33 tab 11/22/18 [Rx] Sennosides [Senokot] 1 tab PO BID #60 tablet 11/22/18 [Rx] Follow up Appointment(s)/Referral(s): Malathi Coppola MD [Primary Care Provider] - 1-2 days Surendra Dave DO [Doctor of Osteopathic Medicine] - 12/05/18 2:15 pm Activity/Diet/Wound Care/Special Instructions: Strictly nonweightbearing to the right lower extremity. Daily dressing changes. Kiana may be removed 10-14 days after surgery. Patient may shower in 24-48 hours if no drainage from the incision. Please follow-up with [facility] in 2 weeks and call with any questions or concerns, . Discharge Disposition: TRANSFER TO SNF/ECF
--- NOTE | 2018-11-22 12:06 | P.PN ---
Subjective Progress Note Date: 11/22/18 This is a 78-year-old female who is status post closed reduction an intramedullary hip screw fixation of the right hip. There is postoperative day #2. Patient is seen and evaluated at bedside with Dr. Surendra Dave. Patient denies any new complaints today. Patient denies any dizziness, fever/chills, numbness, weakness, tingling, abdominal pain, shortness of breath or chest pain. Objective - Vital Signs Vital signs: Vital Signs Temp 98.7 F 11/22/18 07:18 Pulse 83 11/22/18 07:18 Resp 14 11/22/18 07:18 BP 106/66 11/22/18 07:18 Pulse Ox 98 11/22/18 07:18 Intake & Output 11/21/18 11/22/18 11/22/18 18:59 06:59 18:59 Intake Total 520 1900 Output Total 320 325 Balance 200 1575 Intake: IV 520 Sodium Chloride 0.9% 1, 520 000 ml @ 65 mls/hr IV . [id number] [facility] Rx#:[id number] Intake, IV Titration 1900 Amount Sodium Chloride 0.9% 1, 900 000 ml @ 75 mls/hr IV . [id number] [facility] Rx#:[id number] Sodium Chloride 0.9% 1, 1000 000 ml @ 999 mls/hr IV . Q1H1M [facility] Rx#:[id number] Blood Product 0 Rc As-1 Unit 0 [id number] Output: Urine 320 325 Uretheral (Nichols) 320 Other: Voiding Method Indwelling Catheter Indwelling Catheter - Exam Vital signs are stable. Patient is in no acute distress and is alert and oriented 3. Patient is resting comfortably in a chair. Calf is soft and nontender to palpation. Dressing is clean, dry, and intact. Patient has full foot and ankle motion without pain or difficulty. Neurovascular status and circulatory status are intact. - Labs CBC & Chem 7: 11/22/18 08:55 11/21/18 07:02 Labs: Abnormal Lab Results - Last 24 Hours (Table) 11/21/18 11/21/18 11/21/18 Range/Units 08:43 12:30 17:26 WBC (3.8-10.6) k/uL RBC (3.80-5.40) m/uL Hgb (11.4-16.0) gm/dL Hct (34.0-46.0) % Neutrophils # (1.3-7.7) k/uL POC Glucose (mg/dL) 184 H 143 H (75-99) mg/dL Crossmatch See Detail 11/21/18 11/22/18 11/22/18 Range/Units 20:13 07:16 08:55 WBC 11.7 H (3.8-10.6) k/uL RBC 2.04 L (3.80-5.40) m/uL Hgb 6.3 L* (11.4-16.0) gm/dL Hct 18.6 L* (34.0-46.0) % Neutrophils # 9.4 H (1.3-7.7) k/uL POC Glucose (mg/dL) 144 H 158 H (75-99) mg/dL Crossmatch 11/22/18 Range/Units 11:46 WBC (3.8-10.6) k/uL RBC (3.80-5.40) m/uL Hgb (11.4-16.0) gm/dL Hct (34.0-46.0) % Neutrophils # (1.3-7.7) k/uL POC Glucose (mg/dL) 189 H (75-99) mg/dL Crossmatch Microbiology - Last 24 Hours (Table) 11/18/18 19:20 Blood Culture - Preliminary Blood No Growth after 72 hours Assessment and Plan Assessment: Diabetes mellitus Hypertension Osteoarthritis Parkinson's disease History of breast cancer (1) Closed right hip fracture Current Visit: Yes Status: Acute Code(s): S72.001A - FRACTURE OF UNSP PART OF NECK OF RIGHT FEMUR, INIT SNOMED Code(s): 788971993 (2) Fall Current Visit: Yes Status: Acute Code(s): W19.XXXA - UNSPECIFIED FALL, INITIAL ENCOUNTER SNOMED Code(s): 2099536 Plan: Continue routine postop care and pain control. Continue anticoagulation with Xarelto. Nonweightbearing to the right lower extremity. Daily dressing changes. Appreciate input from medicine. Hemoglobin is 6.3 today. The patient did receive 1 unit of blood yesterday. Awaiting repeat CBC. Patient is currently asymptomatic. Likely discharge to rehab today or tomorrow.
[2018-11-22 13:57] LABS: Basophils % (A) 0 %; Eosinophils # (A) 0.3 k/uL (0-0.7); Eosinophils % (A) 3 %; Lymphocytes # (A) 1.5 k/uL (1.0-4.8); Lymphocytes % (A) 12 %; MCH 28.4 pg (25.0-35.0); MCHC 31.9 g/dL (31.0-37.0); MCV 89.2 fL (80.0-100.0); Mean Platelet Volume 7.8; Monocytes # (A) 0.6 k/uL (0-1.0); Monocytes % (A) 5 %; Neutrophils # (A) 9.9 k/uL (1.3-7.7); Neutrophils % (A) 79 %; Platelet Count 167 k/uL (150-450); RBC 2.05 m/uL (3.80-5.40); RDW 14.3 % (11.5-15.5); WBC 12.5 k/uL (3.8-10.6)
[2018-11-22 14:03] LABS: HGB 5.8 gm/dL (11.4-16.0)
[2018-11-22 14:04] LABS: HCT 18.3 % (34.0-46.0)
[2018-11-22 15:42] LABS: ALT 30 U/L (9-52); AST 48 U/L (14-36); Albumin 2.1 g/dL (3.5-5.0); Alkaline Phosphatase 66 U/L (38-126); Anion Gap 3 mmol/L; Blood Urea Nitrogen 17 mg/dL (7-17); Calcium 7.5 mg/dL (8.4-10.2); Carbon Dioxide 25 mmol/L (22-30); Chloride 104 mmol/L (98-107); Glucose 149 mg/dL (74-99); Potassium 4.3 mmol/L (3.5-5.1); Sodium 132 mmol/L (137-145); Total Bilirubin 1.1 mg/dL (0.2-1.3); Total Protein 4.2 g/dL (6.3-8.2)
[2018-11-22 17:13] LABS: Glucose,Whole Blood 194 mg/dL (75-99)
[2018-11-22] MEDS: FUROSEMIDE 10 MG/ML 2 ML VIAL IV SCH (20:22)
[2018-11-22 21:06] LABS: Glucose,Whole Blood 181 mg/dL (75-99)
--- NOTE | 2018-11-22 21:25 | PN ---
PROGRESS NOTE DATE OF SERVICE: 11/22/2018 This 78-year-old woman with significant right hip fracture, underwent closed reduction intramedullary hip screw placement of the right hip. The patient has significant The patient is mildly confused also. Hemoglobin was 6.3 this morning and subsequently 5.8, WBC 12.5, sodium is 132. The patient complains of tiredness and weakness also. PAST MEDICAL HISTORY: Reviewed. REVIEW OF SYSTEMS: CARDIOVASCULAR: No angina or palpitations. RESPIRATION: As mentioned earlier. GI: As mentioned earlier. GENITOURINARY: No dysuria. CENTRAL NERVOUS SYSTEM: No numbness, weakness. CURRENT MEDICATIONS: Reviewed and include: 1. [place] 5 mg q.6h p.r.n. 2. Aspirin 81 mg. 3. Lipitor 40 mg. 5. Valium 5 mg q.6h p.r.n. 6. Dilaudid. 7. NovoLog. 8. Imdur. 10.Ativan. 11.Lopressor. 12.Morphine sulfate p.r.n. 13.Zofran. 14.Protonix. 15.Xarelto. PHYSICAL EXAM: Patient is alert, oriented x3. Pulse 71, blood pressure 87/50, respiration 14, temperature 98.4, pulse ox 92% on room air. HEENT: Conjunctivae pale. NECK: No jugular venous distention. CARDIOVASCULAR: S1, S2 muffled. RESPIRATORY: Breath sounds diminished in the bases. Bilateral scattered rhonchi and crackles. ABDOMEN: Soft, nontender. Legs status post surgery. Nervous system: No focal deficits. LABS: Albumin is 2.1 and sodium is 132. WBC 12.2. Hemoglobin 5.8. ASSESSMENT: 1. Status post fall and right hip fracture and closed reduction, intramedullary hip screw placement of the right hip. 2. Anemia, acute blood loss anemia, status post transfusion. 3. Change in mental status, metabolic encephalopathy, multifactorial, possibly medication induced. 4. Increased WBC. 5. Vomiting possibly narcotic induced, possible acute gastritis, improved. 6. Possible bibasilar atelectasis and tracheobronchitis. No evidence of pneumonia per Pulmonary. 7. Diabetes mellitus type 2. 8. Vomiting, possibly medication induced. 9. Hypertension. 10.Indeterminate troponin 0.078. 11.History of degenerative joint disease. 12.History of Parkinson's. 13.History of breast cancer with chemo. 14.History of cholecystectomy. 15.History of depression. 16.FULL CODE. RECOMMENDATIONS AND DISCUSSION: Continue current medications, current management and symptomatic treatment. The patient has significant anemia at this time. The exact etiology is unknown. I would recommend 2 units transfusion Lasix. Monitor blood pressure closely. If the patient is not stabilized, I recommend transfer to ICU. Also get a Gastroenterology evaluation also. Stool guaiac. Further recommendations to follow. See orders for details. MMODL / IJN: [id number] / MTDD
[2018-11-22] MEDS: SENNOSIDES-DOCUSATE SODIUM 1 EACH TAB PO SCH (21:57)
[2018-11-23] MEDS: FUROSEMIDE 10 MG/ML 2 ML VIAL IV SCH (01:48)
[2018-11-23] MEDS: SODIUM CHLORIDE 0.9% 1,000 ML IV SCH ×2 (01:51→05:10)
[2018-11-23 06:59] LABS: Glucose,Whole Blood 173 mg/dL (75-99)
[2018-11-23] MEDS: ACETAMINOPHEN TAB 325 MG TAB PO PRN ×2 (07:51→13:46)
[2018-11-23] MEDS: INSULIN ASPART (NovoLOG) 100 UNIT/ML VIAL SQ SCH ×2 (07:51→13:42)
[2018-11-23 07:56] VITALS: BP 173/75; PULSE 86; RESP 18; TEMP 98.3
[2018-11-23 08:04] LABS: Anisocytosis Slight; Basophils % (A) 0 %; Eosinophils # (A) 0.4 k/uL (0-0.7); Eosinophils % (A) 4 %; HCT 25.3 % (34.0-46.0); Lymphocytes # (A) 1.3 k/uL (1.0-4.8); Lymphocytes % (A) 12 %; MCH 27.6 pg (25.0-35.0); MCHC 32.6 g/dL (31.0-37.0); MCV 84.8 fL (80.0-100.0); Mean Platelet Volume 7.6; Monocytes # (A) 0.6 k/uL (0-1.0); Monocytes % (A) 5 %; Neutrophils # (A) 8.5 k/uL (1.3-7.7); Neutrophils % (A) 78 %; Platelet Count 159 k/uL (150-450); RBC 2.99 m/uL (3.80-5.40); RDW 16.6 % (11.5-15.5)
[2018-11-23 08:07] LABS: HGB 8.3 gm/dL (11.4-16.0)
--- NOTE | 2018-11-23 08:43 | P.PN ---
Subjective Progress Note Date: 11/23/18 This is a 78-year-old female who is status post closed reduction an intramedullary hip screw fixation of the right hip. There is postoperative day #3. Patient is seen and evaluated at bedside with Dr. Surendra Dave. Patient denies any new complaints today. Patient denies any dizziness, fever/chills, numbness, weakness, tingling, abdominal pain, shortness of breath or chest pain. Objective - Vital Signs Vital signs: Vital Signs Temp 98.3 F 11/23/18 07:55 Pulse 86 11/23/18 07:55 Resp 18 11/23/18 07:55 BP 173/75 11/23/18 07:55 Pulse Ox 95 11/23/18 07:55 Intake & Output 11/22/18 11/23/18 11/23/18 18:59 06:59 18:59 Intake Total 450 310 Output Total 325 Balance 125 310 Intake: Intake, IV Titration 450 Amount Sodium Chloride 0.9% 1, 450 000 ml @ 75 mls/hr IV . [id number] [facility] Rx#:[id number] Blood Product 0 310 Rc As-1 Unit 310 [id number] Rc Pheresis 2 As3 Unit 0 0 [id number] Output: Urine 325 Uretheral (Nichols) 325 Other: Voiding Method Indwelling Catheter # Voids 2 - Exam Vital signs are stable. Patient is in no acute distress and is alert and oriented 3. Patient is resting comfortably in a chair. Calf is soft and nontender to palpation. Dressing is clean and intact with minimal drainage present. Patient has full foot and ankle motion without pain or difficulty. Dorsalis pedis pulse 2+. Neurovascular status and circulatory status are intact. - Labs CBC & Chem 7: 11/23/18 06:38 11/22/18 13:24 Labs: Abnormal Lab Results - Last 24 Hours (Table) 11/21/18 11/22/18 11/22/18 Range/Units 08:43 08:55 11:46 WBC 11.7 H (3.8-10.6) k/uL RBC 2.04 L (3.80-5.40) m/uL Hgb 6.3 L* (11.4-16.0) gm/dL Hct 18.6 L* (34.0-46.0) % RDW (11.5-15.5) % Neutrophils # 9.4 H (1.3-7.7) k/uL Sodium (137-145) mmol/L Glucose (74-99) mg/dL POC Glucose (mg/dL) 189 H (75-99) mg/dL Calcium (8.4-10.2) mg/dL AST (14-36) U/L Total Protein (6.3-8.2) g/dL Albumin (3.5-5.0) g/dL Crossmatch See Detail 11/22/18 11/22/18 11/22/18 Range/Units 13:24 13:24 17:01 WBC 12.5 H (3.8-10.6) k/uL RBC 2.05 L (3.80-5.40) m/uL Hgb 5.8 L* (11.4-16.0) gm/dL Hct 18.3 L* (34.0-46.0) % RDW (11.5-15.5) % Neutrophils # 9.9 H (1.3-7.7) k/uL Sodium 132 L (137-145) mmol/L Glucose 149 H (74-99) mg/dL POC Glucose (mg/dL) 194 H (75-99) mg/dL Calcium 7.5 L (8.4-10.2) mg/dL AST 48 H (14-36) U/L Total Protein 4.2 L (6.3-8.2) g/dL Albumin 2.1 L (3.5-5.0) g/dL Crossmatch 11/22/18 11/23/18 11/23/18 Range/Units 20:54 06:38 06:48 WBC 11.0 H (3.8-10.6) k/uL RBC 2.99 L (3.80-5.40) m/uL Hgb 8.3 L D (11.4-16.0) gm/dL Hct 25.3 L (34.0-46.0) % RDW 16.6 H (11.5-15.5) % Neutrophils # 8.5 H (1.3-7.7) k/uL Sodium (137-145) mmol/L Glucose (74-99) mg/dL POC Glucose (mg/dL) 181 H 173 H (75-99) mg/dL Calcium (8.4-10.2) mg/dL AST (14-36) U/L Total Protein (6.3-8.2) g/dL Albumin (3.5-5.0) g/dL Crossmatch Microbiology - Last 24 Hours (Table) 11/18/18 19:20 Blood Culture - Preliminary Blood No Growth after 96 hours Assessment and Plan Assessment: Diabetes mellitus Hypertension Osteoarthritis Parkinson's disease History of breast cancer (1) Closed right hip fracture Current Visit: Yes Status: Acute Code(s): S72.001A - FRACTURE OF UNSP PART OF NECK OF RIGHT FEMUR, INIT SNOMED Code(s): 350838675 (2) Fall Current Visit: Yes Status: Acute Code(s): W19.XXXA - UNSPECIFIED FALL, INITIAL ENCOUNTER SNOMED Code(s): 8221876 Plan: Continue routine postop care and pain control. Continue anticoagulation with Xarelto. Nonweightbearing to the right lower extremity. Daily dressing changes. Appreciate input from medicine. Hemoglobin is 8.3 today. Patient did receive 2 units of blood yesterday. Awaiting discharge to rehab when cleared medically.
[2018-11-23] MEDS: ASPIRIN 81 MG PO SCH (10:13)
[2018-11-23] MEDS: LINAGLIPTIN 5 MG TABLET PO SCH (10:14)
[2018-11-23] MEDS: RIVAROXABAN 10 MG TAB PO SCH (10:14)
[2018-11-23] MEDS: PANTOPRAZOLE 40 MG TABLET PO SCH (10:14)
[2018-11-23] MEDS: ATORVASTATIN 40 MG TAB PO SCH (10:14)
[2018-11-23] MEDS: METOPROLOL TARTRATE 25 MG TAB PO SCH (10:14)
[2018-11-23] MEDS: CARBIDOPA-LEVODOPA 25-100 MG 1 EACH TAB PO SCH (10:14)
[2018-11-23 11:45] LABS: Glucose,Whole Blood 193 mg/dL (75-99)
--- NOTE | 2018-11-23 11:48 | P.CONS ---
History of Present Illness - Reason for Consult Consult date: 11/23/18 Anemia Requesting physician: Susanna Correa - Chief Complaint Status post fall right hip fracture - History of Present Illness 78-year-old female admitted with acute right hip fracture status post closed reduction intramedullary hip screw placement of the right hip postop day 3. Consult requested for anemia. No obvious signs of GI bleeding such as hematemesis hematochezia melena. Denies epigastric or abdominal pain. Right hip incision well approximated some mild cirrhosis sinus drainage without obvious hematoma or gross bleeding. EBL from surgery approximately 500 MLS per nursing. Admission hemoglobin 11.7 decreased to 5.8 yesterday however nursing reports that peripheral blood draw was drawn above the IV line. She received 2 units of blood current hemoglobin 8.3. MCV 91. Platelet 159. No history of GI bleed or peptic ulcer disease. BUN creatinine within normal limits. Receiving Xarelto 10 mg daily. INR 1.0 on 11/18/2018. Review of Systems Constitutional: Denies fever, chills, sweats, weight gain, or loss. HEENT: Negative for migraines, blurred vision or loss, earaches, drainage, tinnitus, oral mucosal lesions, dysphagia, or odynophagia. CARDIAC: Negative for chest pain, arrhythmias, or palpitation. RESPIRATORY: Negative for shortness of breath, hemoptysis, cough, or sputum production. GI: See HPI for pertinent findings. : Negative for hematuria, urgency, frequency, polyuria, or dysuria. GYNc: Denies possibility of . Negative vaginal discharge. MUSCULOSKELETAL: Negative for muscle aches, swelling, arthritis, and arthralgias. NEUROLOGIC: Negative for stroke or TIA. ENDOCRINE: Negative for thyroid problems. SKIN: Negative for rash or itching. PSYCHIATRIC: Negative history for depression and anxiety Past Medical History Past Medical History: Cancer, Diabetes Mellitus, Eye Disorder, Hypertension, Neurologic Disorder, Osteoarthritis (OA) Additional Past Medical History / Comment(s): Parkinson's disease, hx. breast cancer 2005-had chemo, mitral valve prolapse, SOB w/exertion History of Any Multi-Drug Resistant Organisms: None Reported Past Surgical History: Breast Surgery, Cholecystectomy Additional Past Surgical History / Comment(s): mastectomy left breast, right cataract Past Anesthesia/Blood Transfusion Reactions: No Reported Reaction Past Psychological History: Depression Additional Psychological History / Comment(s): Live alone in apartment Smoking Status: Never smoker Past Alcohol Use History: Rare Past Drug Use History: None Reported - Past Family History Mother Family Medical History: Unable to Obtain Medications and Allergies Home Medications Medication Instructions Recorded Confirmed Type Atorvastatin [Lipitor] 40 mg PO DAILY 11/11/15 11/18/18 History Carbidopa-Levodopa 25-100 mg 1 tab PO TID 11/11/15 11/18/18 History [Sinemet 25-100 mg] Glimepiride [Amaryl] 1 mg PO AC-BRKFST 11/11/15 11/18/18 History Linagliptin [Tradjenta] 5 mg PO DAILY 11/11/15 11/18/18 History Aspirin [Adult Low Dose Aspirin EC] 81 mg PO DAILY 12/28/16 11/18/18 History Isosorbide Mononitrate [Isosorbide 30 mg PO DAILY 12/28/16 11/18/18 History Mononitrate ER] Metoprolol Tartrate 25 mg PO QAM 12/28/16 11/18/18 History Acetaminophen-Codeine 300-30mg 1 tab PO Q6H PRN 11/18/18 11/18/18 History [Tylenol w/codeine #3] Acetaminophen Tab [Tylenol Tab] 1 - 2 tab PO Q8H PRN #90 tablet 11/22/18 Rx HYDROcodone/APAP 5-325MG [[place] 1 - 2 tab PO Q6HR PRN #56 tab 11/22/18 Rx 5-325] Rivaroxaban [Xarelto] 10 mg PO DAILY #33 tab 11/22/18 Rx Sennosides [Senokot] 1 tab PO BID #60 tablet 11/22/18 Rx Allergies Allergy/AdvReac Type Severity Reaction Status Date / Time Penicillins AdvReac Diarrhea Verified 11/18/18 15:52 Physical Exam Vitals: Vital Signs Temp Pulse Pulse Pulse Resp BP BP 11/23/18 07:55 98.3 F 86 18 173/75 11/23/18 01:42 98.4 F 85 16 115/60 11/22/18 23:20 85 16 127/70 11/22/18 22:46 89 119/72 11/22/18 22:40 98.4 F 80 16 129/78 11/22/18 22:33 98.4 F 84 16 120/71 11/22/18 20:10 99.0 F 74 16 127/75 11/22/18 18:02 98.7 F 84 16 120/73 11/22/18 17:32 98.6 F 80 132/66 11/22/18 17:22 98.3 F 77 16 128/64 11/22/18 14:27 98.4 F 71 14 87/52 Pulse Ox 11/23/18 07:55 95 11/23/18 01:42 97 11/22/18 23:20 94 L 11/22/18 22:46 96 11/22/18 22:40 100 11/22/18 22:33 100 11/22/18 20:10 98 11/22/18 18:02 11/22/18 17:32 11/22/18 17:22 96 11/22/18 14:27 92 L Intake and Output 11/22/18 11/23/18 11/23/18 22:59 06:59 14:59 Intake Total 0 310 Output Total 325 Balance -325 310 Intake: Blood Product 0 310 Rc As-1 Unit 310 [id number] Rc Pheresis 2 As3 Unit 0 [id number] Output: Urine 325 Uretheral (Nichols) 325 Other: Voiding Method Indwelling Catheter # Voids 2 2 General appearance: The patient is alert, oriented, in no acute distress. HET: Head is normocephalic and atraumatic. Pupils are equal and reactive. Oropharynx is clear without lesions. Neck: Supple without lymphadenopathy. Trachea midline. Heart: S1 S2. Regular rate and rhythm. Lungs: No crackles or wheezes are heard. Abdomen: Soft, nontender, nondistended with bowel sounds. No peritoneal signs. No palpable organomegaly or masses. Extremities: Right hip incisions with [place] well approximated superior incision with mild cirrhosis and restraints no obvious hematoma or gross ecchymosis. Mild edema. Normal skin color and turgor. No cyanosis, rash, ulceration, clubbing, or edema. Radial and pedal pulses are 2/4 bilaterally. Neurological: No focal deficits. Strength and sensation are grossly intact. Results CBC & Chem 7: 11/23/18 06:38 11/22/18 13:24 Labs: Abnormal Lab Results - Last 24 Hours (Table) 11/21/18 11/22/18 11/22/18 Range/Units 08:43 11:46 13:24 WBC 12.5 H (3.8-10.6) k/uL RBC 2.05 L (3.80-5.40) m/uL Hgb 5.8 L* (11.4-16.0) gm/dL Hct 18.3 L* (34.0-46.0) % RDW (11.5-15.5) % Neutrophils # 9.9 H (1.3-7.7) k/uL Sodium (137-145) mmol/L Glucose (74-99) mg/dL POC Glucose (mg/dL) 189 H (75-99) mg/dL Calcium (8.4-10.2) mg/dL AST (14-36) U/L Total Protein (6.3-8.2) g/dL Albumin (3.5-5.0) g/dL Crossmatch See Detail 11/22/18 11/22/18 11/22/18 Range/Units 13:24 17:01 20:54 WBC (3.8-10.6) k/uL RBC (3.80-5.40) m/uL Hgb (11.4-16.0) gm/dL Hct (34.0-46.0) % RDW (11.5-15.5) % Neutrophils # (1.3-7.7) k/uL Sodium 132 L (137-145) mmol/L Glucose 149 H (74-99) mg/dL POC Glucose (mg/dL) 194 H 181 H (75-99) mg/dL Calcium 7.5 L (8.4-10.2) mg/dL AST 48 H (14-36) U/L Total Protein 4.2 L (6.3-8.2) g/dL Albumin 2.1 L (3.5-5.0) g/dL Crossmatch 11/23/18 11/23/18 11/23/18 Range/Units 06:38 06:48 11:33 WBC 11.0 H (3.8-10.6) k/uL RBC 2.99 L (3.80-5.40) m/uL Hgb 8.3 L D (11.4-16.0) gm/dL Hct 25.3 L (34.0-46.0) % RDW 16.6 H (11.5-15.5) % Neutrophils # 8.5 H (1.3-7.7) k/uL Sodium (137-145) mmol/L Glucose (74-99) mg/dL POC Glucose (mg/dL) 173 H 193 H (75-99) mg/dL Calcium (8.4-10.2) mg/dL AST (14-36) U/L Total Protein (6.3-8.2) g/dL Albumin (3.5-5.0) g/dL Crossmatch Microbiology - Last 24 Hours (Table) 11/18/18 19:20 Blood Culture - Preliminary Blood No Growth after 96 hours Assessment and Plan (1) Acute blood loss anemia Narrative/Plan: 78-year-old female status post fall right hip fracture status post hip surgery maintained on anticoagulation with a drop in normocytic mildly hypochromic hemoglobin most likely from surgical blood loss. No evidence of active GI intestinal bleeding such as hematemesis hematochezia melena absence of abdominal pain preserved BUN/creatinine. Patient received 2 units of blood present hemoglobin 8.3. Current Visit: Yes Status: Acute Code(s): D62 - ACUTE POSTHEMORRHAGIC ANEMIA SNOMED Code(s): 706995267 (2) Closed right hip fracture Current Visit: Yes Status: Acute Code(s): S72.001A - FRACTURE OF UNSP PART OF NECK OF RIGHT FEMUR, INIT SNOMED Code(s): 947744372 Plan: 1. Agreeable for DC to rehab no clinical indication to suggest active GIB at this time. Continue present medical therapy. Thank you for this kind referral and the opportunity to participate in the care of your patient. This consultation was discussed with Dr. Parikh. The impression and plan of care have been directed as dictated.
[2018-11-23 13:21] LABS: Anisocytosis Slight; HCT 23.4 % (34.0-46.0); HGB 7.7 gm/dL (11.4-16.0); MCH 28.3 pg (25.0-35.0); MCHC 32.9 g/dL (31.0-37.0); MCV 86.2 fL (80.0-100.0); Mean Platelet Volume 8.1; Platelet Count 193 k/uL (150-450); RBC 2.72 m/uL (3.80-5.40); RDW 16.7 % (11.5-15.5); WBC 11.3 k/uL (3.8-10.6)
[2018-11-23] MEDS: ISOSORBIDE MONONITRATE ER 30 MG TAB.ER.24H PO SCH (13:42)
--- NOTE | 2018-11-23 20:51 | PN ---
PROGRESS NOTE DATE OF SERVICE: 11/23/2018 This 78-year-old woman who was admitted with a right hip fracture also had closed reduction intramedullary screw plating. The patient also had anemia, change in mental status and multiple other medical problems. The patient also had a GI evaluation. At this time the patient is also being prepared for ECF rehab. Past medical history reviewed. REVIEW OF SYSTEMS: CARDIOVASCULAR SYSTEM: No angina, palpitations. RESPIRATORY SYSTEM: As mentioned earlier. GI: As mentioned earlier. : No dysuria or retention. NERVOUS SYSTEM: No numbness, weakness. CURRENT MEDICATIONS: Reviewed. They include: 1. Tylenol p.r.n. 2. [place] p.r.n. 3. Aspirin. 4. Lipitor. 5. Sinemet. 6. Valium. 7. Lasix. 8. Dilaudid. 9. Imdur. 10.Tradjenta. 11.Ativan. 12.Milk of Magnesia. 13.Lopressor. 14.Narcan. 15.Protonix. 16.Xarelto 10 mg daily. PHYSICAL EXAMINATION: Patient alert and oriented x3. Pulse 86, blood pressure 173/75, respiration 18, temperature 98.3, pulse ox 94% on 2 L. HEENT: Conjunctivae normal. NECK: No jugular venous distention. CARDIOVASCULAR SYSTEM: S1, S2 muffled. RESPIRATORY SYSTEM: Breath sounds diminished at the bases. Bilateral scattered rhonchi and crackles. ABDOMEN: Soft, non-tender. LEGS: Status post surgery. NERVOUS SYSTEM: No focal deficit. LABS: WBC 11.3, hemoglobin 7.7. ASSESSMENT: 1. Status post fall and right hip fracture with closed reduction and intramedullary hip screw placement of the right hip. 2. Anemia, acute on chronic; blood-loss anemia, status post transfusion. 3. Change in mental status, metabolic encephalopathy, multifactorial, possibly medication-induced. 4. Increased white count. 5. Vomiting, possibly narcotic-induced, possibly acute gastritis, improved. 6. Possible bibasilar atelectasis and tracheobronchitis. No evidence of pneumonia per Pulmonary. 7. Diabetes mellitus, type 2. 8. Vomiting, possibly medication-induced. 9. Hypertension. 10.Indeterminate troponin 0.078. 11.History of degenerative joint disease. 12.History of Parkinson's. 13.History of breast cancer with chemo. 14.History of cholecystectomy. 15.History of depression. 16.FULL CODE. RECOMMENDATIONS AND DISCUSSION: I recommend to continue current medications, continue with the monitoring, symptomatic treatment. Otherwise at this time I would recommend incentive spirometry. Repeat labs. Monitor the hemoglobin very closely. Gastroenterology has seen the patient and recommended no further workup. No chest pain. No palpitations. No fever. Otherwise, medication reconciliation was done. Closely follow in ECF for continued monitoring and repeat CBCs. Further recommendations to follow. MMODL / IJN: [id number] /
== END 2018-11-23 16:53 | DRG 480 ==
LOC: EC 14:55 → 4SSUR 16:16
PROVIDERS: ADMIT Orthopaedic Surgery; ATTEND Orthopaedic Surgery
PROC: 0QS636Z Reposition Right Upper Femur with Intramedullary Internal Fixation Device, Percutaneous Approach (ICD-10-PCS; 2018-11-20)
PROC: 30233N1 Transfusion of Nonautologous Red Blood Cells into Peripheral Vein, Percutaneous Approach (ICD-10-PCS; principal; 2018-11-21)
DX: S72.141A Displaced intertrochanteric fracture of right femur, initial encounter for closed fracture (principal); G93.41 Metabolic encephalopathy; D62 Acute posthemorrhagic anemia; J98.11 Atelectasis; E11.9 Type 2 diabetes mellitus without complications; I34.1 Nonrheumatic mitral (valve) prolapse; G20 Parkinson's disease; M19.90 Unspecified osteoarthritis, unspecified site; I10 Essential (primary) hypertension; R11.10 Vomiting, unspecified; R74.8 Abnormal levels of other serum enzymes; E78.5 Hyperlipidemia, unspecified; K29.00 Acute gastritis without bleeding; J40 Bronchitis, not specified as acute or chronic; F32.9 Major depressive disorder, single episode, unspecified; T40.605A Adverse effect of unspecified narcotics, initial encounter; W06.XXXA Fall from bed, initial encounter; Z79.899 Other long term (current) drug therapy; Z79.84 Long term (current) use of oral hypoglycemic drugs; Z79.82 Long term (current) use of aspirin; Z85.3 Personal history of malignant neoplasm of breast; Z92.21 Personal history of antineoplastic chemotherapy; Z90.49 Acquired absence of other specified parts of digestive tract; Z90.12 Acquired absence of left breast and nipple; Z98.42 Cataract extraction status, left eye; Z98.41 Cataract extraction status, right eye; Z88.0 Allergy status to penicillin
CPT/HCPCS: 71045; 73501; 73502; 80048; 80053; 81001; 82550; 83880; 84484; 85025; 85027; 85610; 85730; 86850; 86900; 86901; 86920; 87040; 87086; 87502; 93005; 94640; 96374; 99285

== ENCOUNTER 2018-11-28 23:56 | Emergency (ER) | payer MEDICARE, OTHER ==
--- NOTE | 2018-11-29 02:03 | XR ---
EXAM: XR Chest, 2 Views CLINICAL HISTORY: ITS.REASON XR Reason: Chest Pain TECHNIQUE: Frontal and lateral views of the chest. COMPARISON: Chest x-ray 11/19/18 IMPRESSION: Unchanged heart size. Right hilar/lower lobe opacity may represent atelectasis versus infectious process. No pleural effusion.
[2018-11-29 02:09] LABS: Anisocytosis Slight; Basophils % (A) 0 %; Eosinophils # (A) 0.4 k/uL (0-0.7); Eosinophils % (A) 3 %; HCT 29.5 % (34.0-46.0); Hypochromasia Slight; Lymphocytes # (A) 1.3 k/uL (1.0-4.8); Lymphocytes % (A) 8 %; MCH 28.2 pg (25.0-35.0); MCHC 32.2 g/dL (31.0-37.0); MCV 87.5 fL (80.0-100.0); Mean Platelet Volume 6.9; Monocytes # (A) 0.5 k/uL (0-1.0); Monocytes % (A) 3 %; Neutrophils % (A) 86 %; Platelet Count 357 k/uL (150-450); RBC 3.37 m/uL (3.80-5.40); RDW 17.3 % (11.5-15.5); WBC 16.4 k/uL (3.8-10.6)
[2018-11-29 02:17] LABS: Albumin 2.5 g/dL (3.5-5.0); Calcium 7.8 mg/dL (8.4-10.2); Magnesium 2.5 mg/dL (1.6-2.3); Total Protein 4.9 g/dL (6.3-8.2)
[2018-11-29 02:18] LABS: HGB 9.5 gm/dL (11.4-16.0)
--- NOTE | 2018-11-29 02:28 | ED ---
General Adult HPI - General Chief complaint: Recheck/Abnormal Lab/Rx Stated complaint: Incision Check Time Seen by Provider: 11/29/18 00:30 Source: patient Mode of arrival: EMS Limitations: no limitations - History of Present Illness Initial comments: Sarah is a pleasant 78-year-old female who presents the emergency department today from [facility] facility for evaluation of hypoxia. The patient had a fall with right hip fracture which was repaired on November 20. Per medical records patient was resumed on her home Xarelto upon arrival at the residential however she has developed some edema of the right lower extremity and today was noted to be hypoxic with oxygen saturations in the 70s per residential staff. EMS reports that she was in the low 80s upon their arrival she is on 2 L nasal cannula oxygen with oxygen saturation in the low 90s. Patient complains of some pain in her hip and reports she doesn't feel that she is doing enough physical therapy but otherwise denies any complaints she denies fevers, chills, chest pain palpitations or shortness of breath though she has not exerted herself in any manner recently. - Related Data Home Medications Medication Instructions Recorded Confirmed Atorvastatin [Lipitor] 40 mg PO DAILY 11/11/15 11/29/18 Carbidopa-Levodopa 25-100 mg 1 tab PO TID 11/11/15 11/29/18 [Sinemet 25-100 mg] Glimepiride [Amaryl] 1 mg PO AC-BRKFST 11/11/15 11/29/18 Linagliptin [Tradjenta] 5 mg PO DAILY 11/11/15 11/29/18 Aspirin [Adult Low Dose Aspirin EC] 81 mg PO DAILY 12/28/16 11/29/18 Isosorbide Mononitrate [Isosorbide 30 mg PO DAILY 12/28/16 11/29/18 Mononitrate ER] Metoprolol Tartrate 25 mg PO QAM 12/28/16 11/29/18 Acetaminophen-Codeine 300-30mg 1 tab PO Q6H PRN 11/18/18 11/29/18 [Tylenol w/codeine #3] Previous Rx's Medication Instructions Recorded Acetaminophen Tab [Tylenol Tab] 1 - 2 tab PO Q8H PRN #90 tablet 11/22/18 HYDROcodone/APAP 5-325MG [[place] 1 - 2 tab PO Q6HR PRN #56 tab 11/22/18 5-325] Rivaroxaban [Xarelto] 10 mg PO DAILY #33 tab 11/22/18 Sennosides [Senokot] 1 tab PO BID #60 tablet 11/22/18 INSULIN ASPART (NovoLOG) [NovoLOG 0 unit SQ ACHS vial 11/23/18 (formulary)] Pantoprazole [Protonix] 40 mg PO BID tablet. 11/23/18 Allergies Allergy/AdvReac Type Severity Reaction Status Date / Time Penicillins AdvReac Diarrhea Verified 11/18/18 15:52 Review of Systems ROS Statement: Those systems with pertinent positive or pertinent negative responses have been documented in the HPI. ROS Other: All systems not noted in ROS Statement are negative. Past Medical History Past Medical History: Cancer, Diabetes Mellitus, Eye Disorder, Hypertension, Neurologic Disorder, Osteoarthritis (OA) Additional Past Medical History / Comment(s): Parkinson's disease, hx. breast cancer 2005-had chemo, mitral valve prolapse, SOB w/exertion History of Any Multi-Drug Resistant Organisms: None Reported Past Surgical History: Breast Surgery, Cholecystectomy Additional Past Surgical History / Comment(s): mastectomy left breast, right cataract Past Anesthesia/Blood Transfusion Reactions: No Reported Reaction Past Psychological History: Depression Smoking Status: Never smoker Past Alcohol Use History: Rare Past Drug Use History: None Reported - Past Family History Mother Family Medical History: Unable to Obtain General Exam - General Exam Comments Initial Comments: Physical Exam GENERAL: Elderly female HENT: Normocephalic, Atraumatic. EYES: PERRL, EOMI PULMONARY: Unlabored respirations. No audible rales rhonchi or wheezing was noted. CARDIOVASCULAR: RRR Systolic murmur ABDOMEN: Soft and nontender with normal bowel sounds. SKIN: Right hip with well-healing surgical incisions which are stapled no surrounding erythema : Deferred NEUROLOGIC: Patient is alert and oriented x3. MUSCULOSKELETAL: Decreased range of motion of the right hip secondary to postop status 2+ pitting edema right lower extremity PSYCHIATRIC: Normal psychiatric evaluation. Limitations: no limitations Limitations: no limitations Course Vital Signs 11/29/18 11/29/18 11/29/18 00:03 01:22 02:00 Pulse Rate 80 80 80 Respiratory 22 20 20 Rate Blood Pressure 140/69 123/70 O2 Sat by Pulse 91 L 93 L 90 L Oximetry EKG Findings - EKG Comments: EKG Findings:: Initial EKG obtained at 106 , rate is 80 rhythm is sinus there is normal axis, ND is 142, QRS is 92 QTc is prolonged at 486 there is significant respiratory variation but there appears to be T wave inversions in V2 and V3 no acute ST elevations. Repeat EKG was obtained at 4:14 AM, rate is 80 rhythm is sinus there is a normal axis, ND is 148, QRS 94, QTC 502 QTc is prolonged at 502, there is T wave inversions in V2 and V3. Medical Decision Making - Medical Decision Making Patient was seen and evaluated history was obtained from the patient and review of medical record as well as EMS Pleasant 78-year-old female presenting from residential for hypoxia she is 9 days postop from a right hip Given her recent surgical history there is concern for pulmonary embolism LAbs with multiple abnormalities including improving Hgb, worsening leukocytosis New BNP elevation, Trop 1.9 - High dose heparin ordered for concern of PE D-dimer elevated There is CIERRA with decreased GFR - however I feel the patient may have a massive her submassive pulmonary embolism which would be amenable to intervention therefore I will obtain a CT PE scan to determine patient's disposition. Computed tomography scan does confirm bilateral segmental pulmonary embolism with signs of acute right heart strain including flattening of the intrav entricular septum and reflex of contrast into the IVC. Given these findings I do feel the patient needs to be evaluated by interventional cardiology for possible ECOS. Contacted [facility] and discuss care with emergency physician Dr. Jones who accepts the transfer, I then discussed the care with the PE interventional is Dr. Vallejo who agrees the patient is a possible candidate for intervention and does recommend transferred to [facility] for further intervention. Patient was updated on this plan. She remained hemodynamically stable, oxygen saturations in the low to mid 90s on 2 L nasal cannula. Patient remains without complaint. - Lab Data Result diagrams: 11/29/18 01:57 11/29/18 01:57 Lab Results 11/29/18 11/29/18 11/29/18 Range/Units 01:57 01:57 01:57 WBC 16.4 H (3.8-10.6) k/uL RBC 3.37 L (3.80-5.40) m/uL Hgb 9.5 L D (11.4-16.0) gm/dL Hct 29.5 L (34.0-46.0) % MCV 87.5 (80.0-100.0) fL MCH 28.2 (25.0-35.0) pg MCHC 32.2 (31.0-37.0) g/dL RDW 17.3 H (11.5-15.5) % Plt Count 357 (150-450) k/uL Neutrophils % 86 % Lymphocytes % 8 % Monocytes % 3 % Eosinophils % 3 % Basophils % 0 % Neutrophils # 14.0 H (1.3-7.7) k/uL Lymphocytes # 1.3 (1.0-4.8) k/uL Monocytes # 0.5 (0-1.0) k/uL Eosinophils # 0.4 (0-0.7) k/uL Basophils # 0.0 (0-0.2) k/uL Hypochromasia Slight Anisocytosis Slight PT 10.8 (9.0-12.0) sec INR 1.0 (<1.2) APTT 21.6 L (22.0-30.0) sec D-Dimer 18.84 H (<0.60) mg/L FEU Sodium 133 L (137-145) mmol/L Potassium 4.0 (3.5-5.1) mmol/L Chloride 102 (98-107) mmol/L Carbon Dioxide 25 (22-30) mmol/L Anion Gap 6 mmol/L BUN 45 H (7-17) mg/dL Creatinine 1.32 H (0.52-1.04) mg/dL Est GFR (CKD-EPI)AfAm 45 (>60 ml/min/1.73 sqM) Est GFR (CKD-EPI)NonAf 39 (>60 ml/min/1.73 sqM) Glucose 79 (74-99) mg/dL Calcium 7.8 L (8.4-10.2) mg/dL Magnesium 2.5 H (1.6-2.3) mg/dL Total Bilirubin 2.0 H (0.2-1.3) mg/dL AST 52 H (14-36) U/L ALT 21 (9-52) U/L Alkaline Phosphatase 102 (38-126) U/L Troponin I (0.000-0.034) ng/mL NT-Pro-B Natriuret Pep pg/mL Total Protein 4.9 L (6.3-8.2) g/dL Albumin 2.5 L (3.5-5.0) g/dL 11/29/18 11/29/18 Range/Units 01:57 01:57 WBC (3.8-10.6) k/uL RBC (3.80-5.40) m/uL Hgb (11.4-16.0) gm/dL Hct (34.0-46.0) % MCV (80.0-100.0) fL MCH (25.0-35.0) pg MCHC (31.0-37.0) g/dL RDW (11.5-15.5) % Plt Count (150-450) k/uL Neutrophils % % Lymphocytes % % Monocytes % % Eosinophils % % Basophils % % Neutrophils # (1.3-7.7) k/uL Lymphocytes # (1.0-4.8) k/uL Monocytes # (0-1.0) k/uL Eosinophils # (0-0.7) k/uL Basophils # (0-0.2) k/uL Hypochromasia Anisocytosis PT (9.0-12.0) sec INR (<1.2) APTT (22.0-30.0) sec D-Dimer (<0.60) mg/L FEU Sodium (137-145) mmol/L Potassium (3.5-5.1) mmol/L Chloride (98-107) mmol/L Carbon Dioxide (22-30) mmol/L Anion Gap mmol/L BUN (7-17) mg/dL Creatinine (0.52-1.04) mg/dL Est GFR (CKD-EPI)AfAm (>60 ml/min/1.73 sqM) Est GFR (CKD-EPI)NonAf (>60 ml/min/1.73 sqM) Glucose (74-99) mg/dL Calcium (8.4-10.2) mg/dL Magnesium (1.6-2.3) mg/dL Total Bilirubin (0.2-1.3) mg/dL AST (14-36) U/L ALT (9-52) U/L Alkaline Phosphatase (38-126) U/L Troponin I 1.900 H* (0.000-0.034) ng/mL NT-Pro-B Natriuret Pep 6350 pg/mL Total Protein (6.3-8.2) g/dL Albumin (3.5-5.0) g/dL Disposition Clinical Impression: Bilateral pulmonary embolism, Acute heart failure, Elevated troponin, Closed right hip fracture Disposition: OTHER INSTITUTION NOT DEFINED Condition: Serious Referrals: Clay Mars DO [Primary Care Provider] - 1-2 days - Out of Hospital Transfer - Req. Specs Out of Hospital Transfer - Requested Specifics: Other Emergency Center ([facility] - for interventional cardiology - PE response team)
[2018-11-29 02:39] LABS: Prothrombin Time 10.8 sec (9.0-12.0)
[2018-11-29] MEDS ORDERED: HEPARIN SOD,PORK IN 0.45% NACL 25,000 UNIT in 0.45% NACL 1 250ML.BAG IV SCH (03:00)
[2018-11-29] MEDS ORDERED: HEPARIN SODIUM,PORCINE 5,000 UNIT/ML 1 ML VIAL IV PRN (03:00)
[2018-11-29] MEDS ORDERED: HEPARIN SODIUM,PORCINE 10,000 UNIT/ML 1 ML VIAL IV ONE (03:00)
[2018-11-29 03:07] LABS: Partial Thromboplastin Time 21.6 sec (22.0-30.0)
[2018-11-29 03:08] LABS: D-Dimer 18.84 mg/L FEU (<0.60)
[2018-11-29] MEDS ORDERED: NALOXONE 0.4 MG/ML 1 ML VIAL IV PRN (03:12)
[2018-11-29] MEDS ORDERED: Acetaminophen-Codeine 300-30mg TAB PO PRN (03:14)
--- NOTE | 2018-11-29 04:07 | CT ---
EXAM: CT Angiography Chest With Intravenous Contrast CLINICAL HISTORY: ITS.REASON CT Reason: Pain TECHNIQUE: Axial computed tomographic angiography images of the chest with intravenous contrast using pulmonary embolism protocol. CTDI is 13 mGy and DLP is 441 mGy-cm. This CT exam was performed using one or more of the following dose reduction techniques: automated exposure control, adjustment of the mA and/or kV according to patient size, and/or use of iterative reconstruction technique. MIP reconstructed images were created and reviewed. COMPARISON: Chest x-ray 11/29/18 FINDINGS: Pulmonary arteries: Filling defects are seen in the segmental branches of the bilateral upper and lower lobes. Aorta: No thoracic aortic aneurysm. Lungs: No mass. No consolidation. Small subsegmental atelectasis bilaterally. Pleural space: No significant effusion. No pneumothorax. Heart: No cardiomegaly or pericardial effusion. Reflux of contrast into the IVC with straightening of the interventricular septum. Bones/joints: No acute fracture or dislocation. Soft tissues: Stranding of the fat along the left abdominal sidewall. Lymph nodes: No enlarged lymph nodes. IMPRESSION: 1. Extensive bilateral pulmonary emboli. No pulmonary infarct. Evidence of right heart strain. 2. Stranding of the fat along the left abdominal side wall, correlate with trauma. No underlying fracture. <MYCVCSECTION> Critical Value Communications 11/29/18 04:23 Verify Receipt Verified receipt with [facility]. Report given to Dr. Armando on 11/29 04:22 (-04:00)
[2018-11-29 05:34] VITALS: BP 128/72; PULSE 84; RESP 22
[2018-11-29] MEDS ORDERED: CARBIDOPA-LEVODOPA 25-100 MG 1 EACH TAB PO SCH (09:00)
== END 2018-11-29 05:40 | disposition short-term general hospital (02) ==
LOC: EC 23:56
DX: I26.99 Other pulmonary embolism without acute cor pulmonale (principal); S72.001D Fracture of unspecified part of neck of right femur, subsequent encounter for closed fracture with routine healing; I11.0 Hypertensive heart disease with heart failure; I50.9 Heart failure, unspecified; R74.8 Abnormal levels of other serum enzymes; D72.829 Elevated white blood cell count, unspecified; E11.9 Type 2 diabetes mellitus without complications; G20 Parkinson's disease; Z79.82 Long term (current) use of aspirin; Z79.84 Long term (current) use of oral hypoglycemic drugs; Z79.899 Other long term (current) drug therapy; Z88.0 Allergy status to penicillin; Z85.3 Personal history of malignant neoplasm of breast; Z90.12 Acquired absence of left breast and nipple; W19.XXXD Unspecified fall, subsequent encounter
CPT/HCPCS: 36415; 93005; 85379; 83880; 80053; 83735; 84484; 85025; 85610; 85730; 71046; 71275; 99285; 96365; 96366; 96376; J1644 ×2; Q9967

== ENCOUNTER → 2019-02-13 | Outpatient (CLI) | payer MEDICARE, OTHER ==
[2019-02-13 09:12] LABS: African American GFR (CKD) >90 (>60 ml/min/1.73 sqM); Blood Urea Nitrogen 14 mg/dL (7-17)
--- NOTE | 2019-02-13 10:02 | CT ---
EXAMINATION TYPE: CT angio chest DATE OF EXAM: 02/13/2019 9:50 AM COMPARISON: 11/29/2018 HISTORY: Follow up on pulmonary embolism-bilaterally CT DLP: 490 mGycm Automated exposure control for dose reduction was used. CONTRAST: CTA scan of the thorax is performed with IV Contrast, patient injected with 100, wasted 34 ml mL of I sovue 370, pulmonary embolism protocol. . FINDINGS: LUNGS: Subsegmental consolidation involving both lungs. No pneumothorax. No pleural effusion MEDIASTINUM: There is satisfactory enhancement of the pulmonary artery and its branches, there is no CT evidence for pulmonary embolism. There are no greater than 1 cm hilar or mediastinal lymph nodes. No pericardial effusion is seen. OTHER: Stable calcification involving the right vocal cords. Hypertrophic and degenerative changes s pine. Hepatic cyst and right-sided renal cysts are incidentally noted. Calcification overlying the duodenum likely representing bowel content. Similar density within the gastric antrum. Previous cholecystecto my noted. Correlate for previous left-sided breast surgery. IMPRESSION: 1. No evidence of pulmonary and wasn't 2. Bilateral subsegmental areas of consolidation most likely in the basis of atelectasis.
== END | disposition home or self-care (01) ==
LOC: RADCTMAIN 08:22
PROVIDERS: ATTEND Family Medicine
DX: Z86.711 Personal history of pulmonary embolism (principal)
CPT/HCPCS: 82565; 84520; 71275; 36415; Q9967